=== PATIENT | female | born 1930 | race Caucasian/White ===

== ENCOUNTER 2016-10-15 10:41 | Inpatient (IN) | payer MEDICARE, OTHER ==
[~2016-10-15] VITALS: Ht 152.4 cm; Wt 70.8 kg
[2016-10-15] VITALS (9 sets, daily range): BP systolic 150–180; BP diastolic 69–78; PULSE 66–78; RESP 15–17; O2SAT 94–97
[~2016-10-15 10:41] MED LIST: ALEN70SO3 PO; ASCO-294 PO; CA C1TAB87 PO; CALC100T2 PO; CETI10CA PO; CHOL100045 PO; DESO15CR10 TOP; DESO15CR25 TOP; FLUO118.2 TP; FLUO60SO3 TOPICAL; FOLI1TAB5 PO; KETACONAZOLE SHAMPOO TP; LEVO75TA4 PO; OMEP20CA11 PO; SIMV80TA4 PO; [UNRECOGNIZED DRUG - OTHER] PO
--- NOTE | 2016-10-15 10:52 | ED.REPORT ---
HPI-General Illness Date of Service Oct 15, 2016 ED Provider: Dr. Ryan Pt is an 86 y/o female presenting to the ED via EMS due to near-syncope onset prior to arrival. The pt was using an exercise cycle and heard her phone ring. She got up to answer the phone and felt very lightheaded. She went down to her knees to . She stood up to call her son-in-law and then rested lying down on the couch. Her lightheadedness persisted although she was lying down. She experienced a similar episode 2 days ago but with far less severity. She notes unusual dyspnea on exertion while she was using her treadmill a few days ago. She denies CP, SOB, focal numbness or weakness, vision change, speech change, dysuria, nausea, vomiting, diarrhea, cough, fever. She is feeling OK at time of interview. Nursing Notes Stated Complaint: DIZZY Nursing Notes Reviewed: Yes Allergies: Coded Allergies: erythromycin ethylsuccinate (Verified Allergy, Severe, HIVES, 10/15/16) naproxen (Verified Adverse Reaction, Severe, GI PROBLEMS, 10/15/16) Scheduled Alendronate Sodium (Fosamax) 70 Mg Tablet 70 MG PO WEEKLY Tuesdays Ascorbate Calcium (Vitamin C) 500 Mg Tablet 500 MG PO DAILY Ca Carbonate/Vitamin D3/Vit K (Citracal Soft Chew) 1 Each Tab.chew 1 EACH PO DAILY Cetirizine HCl (Zyrtec) 10 Mg Capsule 10 MG PO DAILY Cholecalciferol (Vitamin D3) (Vitamin D) 1,000 Unit Capsule 2,000 UNIT PO DAILY Doxepin (Doxepin) 10 Mg Capsule 10 MG PO HS Fluocinonide 0.05% Solution (Fluocinonide 0.05% Solution) 60 Ml Solution 1 APPLIC TOPICAL every other day shampoo for scalp Folic Acid/Mv,Fe,Other Min (Centrum Chewable Tablet) 1 Each Tab.chew 1 EACH PO DAILY Gluc 2Kcl/Chondr/Zi Hy/Hy AC (Glucosamine & Chondroitin Cap) 1 Each Capsule 1 EACH PO BID Levothyroxine (Levothyroxine) 75 Mcg Tablet 112 MCG PO DAILY 112mcg on Mondays and Fridays Levothyroxine (Levothyroxine) 75 Mcg Tablet 75 MCG PO DAILY 75mcg on Sundays, Tuesdays, Wednesdays, , Saturdays Melatonin (Melatonin) 5 Mg Tablet 5 MG PO HS Simvastatin (Simvastatin) 80 Mg Tablet 80 MG PO HS Vit B Comp/C/FA/Iron/Vit E (Vitamin B Complex Tablet) 1 Each Tablet 1 EACH PO DAILY Scheduled PRN ([Ketaconazole Shampoo]) 1 APPLIC TP 2-3X/WEEK PRN PRN PRN 2% General Time Seen by MD: 10:58 Chief Complaint Other (Near-syncope) Hx Obtained From: Patient, EMS Arrived By: Ambulance Sudden in Onset?: Yes Onset Occurred: Just prior to arrival Symptom Duration: Intermittent Severity: Current: No pain currently Severity: Maximum: No pain Past Medical History Past Medical History Hypothyroid Hypertension Hyperlipidemia Hx Diverticulitis GERD Depression Anxiety Hx skin CA Past Surgical History Appendectomy Hysterectomy Vaginal suspension T&A Ovarian cystectomy MOH's x2 Smoking History Never Smoker Social History Alcohol Use: Denies alcohol use Drug Use: Denies drug use Ambulatory Status Independent Review of Systems Full Review of Systems Constitutional: Denies: Chills, Fever Respiratory: Reports: Dyspnea on exertion, Denies: Non-productive cough, Shortness of breath Cardiovascular: Denies: Chest pain GI: Denies: Abdominal pain, Diarrhea, Nausea, Vomiting Female: Denies: Dysuria Neurologic: Reports: Lightheaded, Denies: Bladder dysfunction, Bowel dysfunction, Change LOC, Confusion, Focal weakness, Headache, Numbness, Seizure, Shaking, Slurred speech, Spinning sensation, Unable to speak, Vision change Complete sys rev & neg: except as marked. Physical Exam Vital Signs Vital Signs Date Time Temp Pulse Resp B/P Pulse Ox O2 Delivery O2 Flow Rate FiO2 10/15/16 13:45 72 151/69 96 Room Air 10/15/16 13:34 72 150/69 96 Room Air 10/15/16 11:43 78 15 153/71 95 Room Air 10/15/16 11:10 36.6 76 17 162/75 97 Room Air Initial VS: Reviewed Head / Eyes: Atraumatic, Normocephalic, PERRL ENT: Mucous membranes moist, Conjunctiva normal, No scleral icterus Neck: Supple, Full range of motion Respiratory: Breath sounds normal, Clear to auscultation, No respiratory distress Abdomen / GI: Soft, Non-tender, No guarding, No rebound, No distention Extremities: Vascular intact, Neuro intact, No swelling, No tenderness Skin: Warm, Dry, No cyanosis Neurologic: Nonfocal Psychiatric: Mood/affect normal, Behavior normal, Normal thought content General/Constitutional: Awake, Alert, No acute distress, Well appearing, Cooperative, Not toxic appearing Cardiovascular: Heart rate NL, Regular rhythm, Cap refill not delayed, Peripheral circulation NL Heart Sounds / Murmur: Positive: Systolic murmur present.. (II/, right upper sternal border) Neurologic: Oriented X3, Speech NL, No motor deficits, No sensory deficits, CN II - XII intact, Memory NL Interpretation & Diagnostics Lab Results Interpretation Result Diagram: 10/15/16 1113 10/15/16 1113 Test 10/15/16 11:13 10/15/16 11:31 White Blood Count 7.2th/mm3 (3.8-10.1) Red Blood Count 4.91mil/mm3 (3.90-5.20) Hemoglobin 12.9g/dL (12.0-15.6) Hematocrit 40.2% (35.0-46.0) Mean Corpuscular Volume 81.9fL (81-100) Mean Corpuscular Hemoglobin 26.3pg (27.0-35.0) Mean Corpuscular Hemoglobin Concent 32.1% (32.0-37.0) Red Cell Distribution Width 14.2% (12.3-15.4) Platelet Count 237bil/L (150-400) Neutrophils (%) (Auto) 64.7% (40-74) Lymphocytes (%) (Auto) 23.4% (14-46) Monocytes (%) (Auto) 8.7% (4-12) Eosinophils (%) (Auto) 2.5% (0-5) Basophils (%) (Auto) 0.4% (0-3) D-Dimer 3.8mg/L (<0.50) Sodium Level 139mEq/L (134-144) Potassium Level 4.3mEq/L (3.5-5.2) Chloride Level 100mEq/L (97-108) Carbon Dioxide Level 26mmol/L (18-29) Blood Urea Nitrogen 15mg/dL (8-27) Creatinine 0.61mg/dL (0.57-1.00) Estimat Glomerular Filtration Rate 133mL/min (>59) Glucose Level 94mg/dL (60-99) Calcium Level 9.3mg/dL (8.5-10.1) Magnesium Level 2.0mg/dL (1.6-2.6) Total Bilirubin 0.3mg/dL (0.0-1.2) Aspartate Amino Transf (AST/SGOT) 21U/L (0-50) Alanine Aminotransferase (ALT/SGPT) 11U/L (0-32) Alkaline Phosphatase 79U/L (25-165) Total Creatine Kinase 83U/L (21-215) Creatine Kinase MB 2.6ng/mL (0.0-5.3) Creatine Kinase MB % % (0.0-5.0) Troponin T < 0.010ug/L (0.0-0.011) Pro-B-Type Natriuretic Peptide 499.3pg/mL (0-738) Total Protein 7.3g/dL (6.4-8.4) Albumin 3.7g/dL (3.4-5.0) Hold Urine Received (Received) ECG Interpretation ECG Interpretation: Sinus rhythm rate 71 RBBB Time: 11:31 Interpreted by: ED physician Normal ECG Interpretation: No acute ischemic changes X-Ray Chest Interpretation Chest Xray Interpretation: IMPRESSION: No acute cardiopulmonary abnormality Dictated by: Red Krause M.D. on 10/15/2016 at 12:04 Approved by: Red Krause M.D. on 10/15/2016 at 12:04 View: Portable, 1 view Interpretation / Wet Read by: Interpret - Radiologist CT Chest Interpretation IMPRESSION: 1. No acute pulmonary embolus. 2. Mild aortic atherosclerosis. Dictated by: Idalmis Beatty M.D. on 10/15/2016 at 13:22 Approved by: Idalmis Beatty M.D. on 10/15/2016 at 13:22 Study type: CT pulm angiogram Interpretation / Wet Read by: Interpret - Radiologist Re-Eval/Medical Decision Med Decision/Clinical Course Multiple episodes of near syncope associated with post exertion, additionally patient has a murmur of aortic stenosis. Patient will be admitted for further evaluation. Time of Eval: 13:48 Re-Evaluation/Progress Note: Pt rechecked. Informed pt of need for admission for further cardiac workup. Pt understands and agrees with plan for admission. All questions addressed. Consultation : Referral / Consult Name: Bret Laura MD Consulted With: Hospitalist Call Returned at: 13:53 Assistant Press Operator Offset: Will see patient, Agrees with eval, Agrees with plan, Accepts admit Note: Case discussed. Counseled Regarding: Diagnosis, Lab results, Need for admission Discharge & Departure Primary Impression: Near syncope Additional Impression: Newly recognized heart murmur Disposition: ADMITTED TO HOSPITAL Discharge Condition All VS Reviewed: Yes Condition: Stable Referrals: Tova Lozada MD (PCP) Scribe Attestation Portions of this note were transcribed by Lc Jaimes. I, Dr. Ryan personally performed the history, physical exam and medical decision-making; I reviewed and confirmed the accuracy of the information in the transcribed note. Signed by Jabari Graham, 10/15/16 - [id number] copies to: Tova Lozada MD, Timothy S DO Oct 15, 2016 10:52 LC JAIMES Oct 15, 2016 11:05
[2016-10-15 11:19] LABS: BASOPHILS % (AUTO) 0.4 % (0-3); EOSINOPHILS % (AUTO) 2.5 % (0-5); MONOCYTES % (AUTO) 8.7 % (4-12); Mean Corpuscular Hemoglobin 26.3 pg (27.0-35.0); Mean Corpuscular Volume 81.9 fL (81-100); NEUTROPHILS % (AUTO) 64.7 % (40-74); Platelet Count 237 bil/L (150-400)
[2016-10-15 11:55] LABS: Creatine Kinase 83 U/L (21-215)
[2016-10-15 11:58] LABS: TROPONIN T < 0.010 ug/L (0.0-0.011)
--- NOTE | 2016-10-15 12:06 | DRSVH ---
PROCEDURE: X-RAY CHEST ONE VIEW, PORTABLE ([id number]) INDICATIONS: near syncope TECHNIQUE: One view of the chest was acquired. COMPARISON: 12/18/2013 FINDINGS: Surgical changes and devices: None. Lungs and pleura: No pleural effusions or pneumothorax. Lungs are clear. Mediastinum: Mediastinal contours appear normal. Heart size is normal. Calcifications in the mitral annulus. Bones and chest wall: No suspicious bony lesions. Overlying soft tissues appear unremarkable. IMPRESSION: No acute cardiopulmonary abnormality Dictated by: Red Krause M.D. on 10/15/2016 at 12:04 Approved by: Red Krause M.D. on 10/15/2016 at 12:04
--- NOTE | 2016-10-15 13:24 | DRSVH ---
PROCEDURE: CT ANGIO CHEST PULMONARY EMBOLISM ([id number]) INDICATIONS: near syncope elevated DDIMer TECHNIQUE: After the administration of intravenous contrast, 2 mm thick sections acquired from the pulmonary api mary to the posterior costophrenic angles. 3-dimensional maximum intensity projection (MIP) coronal a nd sagittal reformats were then acquired through the thorax. For radiation dose reduction, the follo wing was used: automated exposure control, adjustment of mA and/or kV according to patient size. COMPARISON: None. FINDINGS: Image quality: Excellent. Pulmonary arteries: Pulmonary arteries are normal in size, and demonstrate no intraluminal filling d efects to suggest central pulmonary embolism. Lungs and pleura: Lungs are clear. No pleural effusions or pneumothorax. Central and peripheral ai rways are patent. Mediastinum: Heart size is normal, without pericardial effusion. No mediastinal or hilar adenopathy . Thoracic aorta is normal in caliber and enhancement. Scattered atheromatous calcifications are pre sent within the aortic arch. Esophagus is normal in caliber, without hiatal hernia. Bones and chest wall: No suspicious bony lesions. Ribs and thoracic spine appear intact throughout. Thyroid gland is unremarkable. No axillary or supraclavicular adenopathy. Abdomen: Visualized upper abdominal solid organs appear normal in the early arterial phase of enhanc ement. IMPRESSION: 1. No acute pulmonary embolus. 2. Mild aortic atherosclerosis. Dictated by: Idalmis Beatty M.D. on 10/15/2016 at 13:22 Approved by: Idalmis Beatty M.D. on 10/15/2016 at 13:22
[2016-10-15] MEDS ORDERED: ALEN70TA2 PO (14:18)
[2016-10-15] MEDS ORDERED: GLUC-120 PO (14:18)
[2016-10-15] MEDS ORDERED: VIT1TABL83 PO (14:18)
[2016-10-15] MEDS ORDERED: MELA5TAB14 PO (14:18)
[2016-10-15] MEDS ORDERED: LEVO75TA4 PO (14:18)
[2016-10-15] MEDS ORDERED: DOXE10CA PO (14:18)
[2016-10-15] MEDS ORDERED: Ondansetron 2 mg/mL 2 mL Inj IVPUSH PRN (14:25)
[2016-10-15] MEDS ORDERED: Alum-Mag Hydrox-Simeth 30 mL Suspension PO PRN (14:25)
[2016-10-15] MEDS ORDERED: Polyethylene Glycol (PEG) 17 Gm Powder PO PRN (14:30)
[2016-10-15] MEDS ORDERED: HYDROcodone-APAP 5-325 mg Tablet PO PRN (14:30)
--- NOTE | 2016-10-15 14:32 | PCM.HPMED ---
Subjective Date of Service Oct 15, 2016 Primary Provider: Admitting Physician: Primary Care Physician: Tova Lozada MD Attending Physician: Chief Complaint: Near syncope History of Present Illness: 86-year-old female generally healthy not on beta blockers having near syncopal episodes after exerting herself. A murmur was heard in the emergency room and an echocardiogram was obtained to rule out aortic stenosis. Patient has moderate aortic stenosis. While here on the floor she got up from the commode and transferred and had a 3.1 second pause and head which she described as mild near syncopal symptoms. She denies any chest pain, no actual falling and has been otherwise well prior to this and these events have never occurred until the last couple days. The pt was using an exercise cycle and heard her phone ring. She got up to answer the phone and felt very lightheaded. She went down to her knees to . She stood up to call her son-in-law and then rested lying down on the couch. Her lightheadedness persisted although she was lying down. She experienced a similar episode 2 days ago but with far less severity. She notes unusual dyspnea on exertion while she was using her treadmill a few days ago. She denies CP, SOB, focal numbness or weakness, vision change, speech change, dysuria, nausea, vomiting, diarrhea, cough, fever. She is feeling OK at time of interview. Review of Systems: Patient states she has been otherwise well other than these episodes with feeling woozy and near loss of consciousness which passed quickly. Gen.: No fevers chills weight loss weight gain Eyes: no visual disturbances or blurring vision HEENT: No nose/throat drainage, no pain in ears or throat, no hearing loss Lymph: No lymph nodes noted Cardiac: No chest pain, orthopnea, PND, palpitations , pedal edema or dyspnea on exertion Pulmonary: no cough, wheezing or bringing up of sputum GI: No anorexia nausea vomiting blood or black in the stool : no dysuria hematuria urinary frequency or decrease in urine output Musculoskeletal: Joint swelling no joint pain no new muscle aches or back pain Neuro: No syncope, seizures no loss of consciousness no new focal weakness, numbness or tingling+ near syncope as described above Psychiatric: New new anxiety insomnia or depression Endocrine: No new heat or cold intolerances polyuria or polydipsia Hematology: No lymphadenopathy or easy bleeding or bruising noted skin: No new rashes, stasis dermatitis Allergies Coded Allergies: erythromycin ethylsuccinate (Verified Allergy, Severe, HIVES, 10/15/16) naproxen (Verified Adverse Reaction, Severe, GI PROBLEMS, 10/15/16) Home Medications Scheduled Alendronate Sodium (Fosamax) 70 Mg Tablet 70 MG PO WEEKLY Tuesdays Ascorbate Calcium (Vitamin C) 500 Mg Tablet 500 MG PO DAILY Ca Carbonate/Vitamin D3/Vit K (Citracal Soft Chew) 1 Each Tab.chew 1 EACH PO DAILY Cetirizine HCl (Zyrtec) 10 Mg Capsule 10 MG PO DAILY Cholecalciferol (Vitamin D3) (Vitamin D) 1,000 Unit Capsule 2,000 UNIT PO DAILY Doxepin (Doxepin) 10 Mg Capsule 10 MG PO HS Fluocinonide 0.05% Solution (Fluocinonide 0.05% Solution) 60 Ml Solution 1 APPLIC TOPICAL every other day shampoo for scalp Folic Acid/Mv,Fe,Other Min (Centrum Chewable Tablet) 1 Each Tab.chew 1 EACH PO DAILY Gluc 2Kcl/Chondr/Zi Hy/Hy AC (Glucosamine & Chondroitin Cap) 1 Each Capsule 1 EACH PO BID Levothyroxine (Levothyroxine) 75 Mcg Tablet 112 MCG PO DAILY 112mcg on Mondays and Fridays Levothyroxine (Levothyroxine) 75 Mcg Tablet 75 MCG PO DAILY 75mcg on Sundays, Tuesdays, Wednesdays, , Saturdays Melatonin (Melatonin) 5 Mg Tablet 5 MG PO HS Simvastatin (Simvastatin) 80 Mg Tablet 80 MG PO HS Vit B Comp/C/FA/Iron/Vit E (Vitamin B Complex Tablet) 1 Each Tablet 1 EACH PO DAILY Scheduled PRN ([Ketaconazole Shampoo]) 1 APPLIC TP 2-3X/WEEK PRN PRN PRN PMH Hypothyroid Hypertension Hyperlipidemia Hx Diverticulitis GERD Depression Anxiety Hx skin CA Past Surgical History Appendectomy Hysterectomy Vaginal suspension T&A Ovarian cystectomy MOH's x2 Smoking History Never Smoker Social History Alcohol Use: Denies alcohol use Drug Use: Denies drug use Ambulatory Status Independent Family History Family history diabetes twins sister and nephews, heart disease and mother osteoporosis and twin sister and older sister and colon cancer in father Social History Hx Alcohol Use: No Hx Substance Use: No Smoking Status: Never Smoker Exam Vital Signs Vital Sign - Last Date Time Temp Pulse Resp B/P Pulse Ox O2 Delivery O2 Flow Rate FiO2 10/15/16 13:45 72 151/69 96 Room Air 10/15/16 11:43 15 10/15/16 11:10 36.6 Exam Gen.- A+ O 3 no apparent distress. Sturdy elderly female in bed but able to get up easily and do transfers Eyes- open conjunctiva clear, pupils equal nonicteric Mouth- oral mucosa moist, no exudate ENT- ears normal, nose normal Neck- supple/trach midline CVS- RRR no gallop, perhaps a 1 out of 6 or 2/6 murmur I could barely hear loudest at the second sternal notch on the right side of the sternal Lungs CTA GI- NABS/NT soft Musc- moving 4 no obvious deformity Neuro- cranial nerves II through XII intact to gross examination, nonfocal Skin- warm and dry, no rashes/lesions/wounds noted Psych- pleasant and appropriate, Lab and Diagnostics Labs LFTs WNL, troponin 0.010, pro BNP 499.3, d-dimer 3.8 Result Diagram: 10/15/16 1113 10/15/16 1113 X-Rays, CTs and MRIs CT angiogram currently reviewed by myself no PE mild atherosclerosis CXR no active disease 12-lead ECG EKG sinus at 71 QTC 492 ms right bundle branch and left anterior fascicular block and no acute ST segment changes personally reviewed Cardiac Echo Impressions ECHO The left ventricle is normal in size. The left ventricle is hyperdynamic. The ejection fraction is estimated to be 75-80%. The right ventricle is normal in size and function. The aortic valve is moderately calcified. The peak aortic velocity is 3.2 m/sec. The aortic valve mean gradient is 21 mmHg. The calculated aortic valve area is 1.4 cm2. There is moderate aortic stenosis. There is mild to moderate aortic regurgitation. There is mild tricuspid regurgitation. The right ventricular systolic pressure is estimated at 40 mmHg assuming a right atrial pressure of 3 mm Hg. Assessment & Plan 86-year-old female with near syncope following exertion. Found to have sinus arrhythmia with symptoms here, cardiology called we will probably need to call them again in the morning. Expectation symptomatic bradycardia pacemaker. Near syncope-explained by 3.1 second pause patient had mild symptoms when she was on the monitor getting off the commode here. Sinus arrhythmia-as above. Patient not on a beta or calcium channel blockers cardiology, no rate slowing medications. Dr. Mclain was called, we will keep the patient nothing by mouth after midnight in preparation for potential pacemaker with Dr. Ch in the morning. Moderate aortic stenosis-no action at this time Prophylaxis-DVT SCDs, perhaps Lovenox post pacemaker insertion., GI not indicated Disposition-patient is DO NOT RESUSCITATE from home Bret Laura MD Oct 15, 2016 14:32
--- NOTE | 2016-10-15 16:21 | DRSVH ---
[facility] [address] [place] [address] Echocardiogram Report Name: FERNANDO JARVIS Study Date: 10/15/2016 Height: 6 0 in Hospital Exam Location: [facility] Weight: 1 55 lb Gender: Female BSA: 1.7 m2 : 1930 Age: 86 yrs BP: 151/6 9 mmHg Reason For Study: SYNCOPE, EVAL Ordering Physician: HOSPITALIST [facility] Performed By: Heather Bain Referring Physician: DR. ALEYDA PALMER Interpretation Summary The left ventricle is normal in size. The left ventricle is hyperdynamic. The ejection fraction is estimated to be 75-80%. The right ventricle is normal in size and function. The aortic valve is moderately calcified. The peak aortic velocity is 3.2 m/sec. The aortic valve mean gradient is 21 mmHg. The calculated aortic valve area is 1.4 cm2. There is moderate aortic stenosis. There is mild to moderate aortic regurgitation. There is mild tricuspid regurgitation. The right ventricular systolic pressure is estimated at 40 mmHg assuming a right atrial pressure of 3 mm Hg. Procedure: A two-dimensional transthoracic echocardiogram with color flow and Doppler was performed. The study quality was technically good. There is no prior echocardiogram noted for this patient. The patient was in normal sinus rhythm during the exam. The patient did have occasional long pauses. Left Ventricle: The left ventricle is normal in size. The LVOT diameter is 2.1 cm. The LVOT velocity is 1.2 m/s. Left ventricular wall thickness is mildly increased. There is no thrombus. The ejection fraction is estimated to be 75-80%. The left ventricle is hyperdynamic. There are no focal wall motion abnormalities. Spectral Doppler of the mitral valve is reversed, with an E/A wave ratio < 1.0. Right Ventricle: The right ventricle is normal in size and function. Atria: The left atrium is moderately dilated. The right atrium is mildly dilated. There is no Doppler evidence for an atrial septal defect. Mitral Valve: There is moderate to severe mitral annular calcification. The mitral valve leaflets appear mildly thickened, but open well. No significant mitral valve stenosis. There is mild mitral stenosis. There is mild mitral regurgitation. Aortic Valve: The aortic valve is trileaflet. The aortic valve is moderately calcified. Leaflet mobility is mild to moderately reduced. The calculated aortic valve area is 1.4 cm2. The peak aortic velocity is 3.2 m/sec. The aortic valve mean gradient is 21 mmHg. There is moderate aortic stenosis. There is mild to moderate aortic regurgitation. Tricuspid Valve: Tricuspid leaflets are thickened. There is mild tricuspid regurgitation. The right ventricular systolic pressure is estimated at 40 mmHg assuming a right atrial pressure of 3 mm Hg. Pulmonic Valve: The pulmonic valve is not well visualized. There is trace pulmonic regurgitation. Great Vessels: The aortic root is normal size. There is aortic root sclerosis/calcification. The ascending aorta is mildly enlarged. The pulmonary artery is not well visualized, but is probably normal size. The IVC is of normal diameter and collapses greater than 50% with a sniff. This suggests a low right atrial pressure of 3 mm Hg. Pericardium/ Pleura There is no pericardial effusion. There is no pleural effusion. MMode/2D Measurements & Calculations LVIDd: 4.4 cm LA dimension: 4.1 cm RA long axis LVOT diam: 2.1 cm LVIDs: 2.2 cm AoV Openin.2 cm FS: 49.8 % LA A2 area: 24.8 cm RA area Ao root diam: 2.9 cm IVSd: 1.1 cm LA A4 area: 24.1 cm asc Aorta Diam LVPWd: 1.0 cm LA length (vol) : 18.7 cm RA vol Ao Arch Diam LA vol: 80.1 ml : 57.5 ml (Proximal trans.) LA vol index RA : 34.3 mm/ RVDd major IVC diam: 1.2 cm RVDd minor : 3.7 cm LV jimenez. diameter/BSALV sys. diameter/BSA (cm/m^2): 2.6 (cm/m^2): 1.3 Doppler Measurements & Calculations Ao V2 max MV E max rsahid MV E/A: 0.58 TR max rashid : 322.0 cm/sec : 128.0 cm/sec Med Peak E' Rashid : 302.5 cm/sec Ao max PG MV A max rashid TR max PG : 41.5 mmHg : 219.1 cm/sec E/E' med: 27.6 : 36.6 mmHg Ao mean PG MV P1/2t: 47.3 msec Lat Peak E' Rashid PA V2 max : 20.9 mmHg MVA(VTI): 2.4 cm2 : 92.4 cm/sec LVOT Max Rashid E/E' lat: 18.8 PA mean PG : 124.5 cm/sec Pulm A Revs Dur : 2.5 mmHg JEWEL(I,D): 1.4 cm sev ratio MV A dur: 0.16 sec AI P1/2t : 400.7 msec AI dec slope : 330.8 cm/s2c MV V2 mean MV P1/2t max rashid Ao V2 mean LV V1 max PG : 127.9 cm/sec : 216.5 cm/sec MV mean PG MVA(P1/2t): 4.7 cm2 Ao V2 VTI: 78.0 cm LV V1 VTI JEWEL(V,D): 1.3 cm2 : 32.9 cm MV V2 VTI: 45.4 cm MV dec time : 0.16 sec PA V2 mean JEWEL indexed to BSA Pulm A Revs Dur - MV : 77.9 cm/sec (cm^2/m^2): 0.84 A Dur: -0.03 msec Reading Physician:EAGLE
--- NOTE | 2016-10-15 16:40 | NUR ---
ADMIT Patient received from the ED via a gurney. Transferred with assist to the bed. IV saline locked. Denies nausea/pain/SOB/lightheadedness at this time. Oriented to room, call light and bathroom. Patient is placed on remote tele. Admit done by Bernie Wright RN. Daughter is at the bedside. Jluis alarm will be turned on once the daughter leaves.
[2016-10-15] MEDS: Sodium Chloride LOK Flush 10 mL Syringe IVFLUSH SCH ×2 (16:57→23:16)
--- NOTE | 2016-10-15 18:12 | NUR ---
TELE/MD NOTIFICATION Per telesales manager patient had a 3.41 sec pause with HR-60's. SBP-150's. Patient was just getting back to bed from the BSC. She denied pain/nausea/dizziness. Per tele protocol STAT EKG ordered. Dr. Laura was made aware. MD came to assess the patient and cardiology consult will be ordered. Will continue to monitor.
--- NOTE | 2016-10-15 18:58 | NUR ---
MD NOTIFICATION Patient had a 3.35 sec pause. SBP-160's. She denies chest pain/SOB/lightheadedness. Dr. Laura made aware. No new orders received at this time. Per MD continue to monitor and cardiology to consult in the morning.
[2016-10-16] VITALS (9 sets, daily range): BP systolic 142–192; BP diastolic 62–73; PULSE 65–80; RESP 15–24; O2SAT 95–97
--- NOTE | 2016-10-16 06:41 | NUR ---
Tele Has remained SR this shift with only one noted pause per elevator service technician. Kept on bed rest all shift for patient safety. NPO since midnight for possible pacemaker pending cardiology consult. Currently resting in bed without any complaints.
[2016-10-16] MEDS: Sodium Chloride LOK Flush 10 mL Syringe IVFLUSH SCH ×3 (08:30→22:01)
--- NOTE | 2016-10-16 12:39 | PCM.HPCARD ---
Subjective Date of service Oct 16, 2016 Primary Provider: Admitting Physician: Bret Laura MD Primary Care Physician: Tova Lozada MD Attending Physician: Bert Laura MD Chief Complaint: Chief Complaint: Near syncope, recurrent lightheadedness, unusual exertional dyspnea History of Present Illness: Mrs. Kennedy is an 86-year-old female generally healthy woman who began having near syncopal episodes about 2 days prior to admission and they seemed to her related to exertion. She was using an exercise cycle and heard her phone ring. She got up to answer the phone and felt very lightheaded and went down to her knees. 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 An echocardiogram was obtained and it shows hyperdynamic LV function and moderate aortic stenosis. While on cardiac cafeteria monitor, she has had at least five occasions of intermittent complete AV Block with 2 or 3 consecutive blocked P waves and she described mild near syncopal symptoms. She denies any chest pain, no actual falling and has been otherwise well prior to this and these events have never occurred until the last couple days. Mrs. Kennedy exercises regularly but has noticed unusual dyspnea on exertion while she was using her stationary bike a few days ago. She denies CP, SOB, weakness, vision change, speech change, nausea, vomiting, diarrhea, cough, or fever. She has not been on any AV mary carmen blocking agents. Review of Systems General: Reports: Change in exercise capacity Endurance Energy Fatigue Denies: Night sweats No Chills No Fever Poor Appitite Eyes: Reports: Reduced vision Denies: Double or blurred vision Problem/recent change in vision Respiratory: Reports: Dry cough Dyspnea with exertion Denies: Cough or wheezing Orthopnea Orthopnea or PND PND Significant dyspnea Wheezing Cardiovascular: Reports: Lightheadedness or syncope Presyncope Syncopal episodes Denies: Abdominal distention Chest Discomfort Claudication Lower extremity edema Palpitations Gastrointestinal: Denies: Abdominal discomfort Dyspepsia Nausea Recent melena or hematochezia Significant diarrhea/constipation Ulcers or GI blood loss Genitourinary: Denies: Hematuria Urinary symptoms Musculoskeletal: Reports: Arthritis Joint pain Joint stiffness Significant joint or back problems Denies: Significant myalgias Neurological: Reports: Dizziness Unsteadiness Denies: Any history of stroke/TIA symptoms Any recent focal neuro deficits Hx unusual FREEDMAN/confusion/memory loss Paralysis Weakness Psychiatric: Reports: Change in cognitve functions Denies: Anxiety Depression Endocrine: Denies: Intolerance to heat Polydipsia Statin intolerance Integumentary: Denies: Increased dryness of the skin Itching Rash Hematologic/Immunologic: Reports: Easy bruising PMH Past Medical History Hypothyroid Hypertension Hyperlipidemia Hx Diverticulitis GERD Depression Anxiety Hx skin CA Past Surgical History Appendectomy Hysterectomy Vaginal suspension T&A Ovarian cystectomy MOH's x2 Smoking History Never Smoker Allergies: Coded Allergies: erythromycin ethylsuccinate (Verified Allergy, Severe, HIVES, 10/15/16) naproxen (Verified Adverse Reaction, Severe, GI PROBLEMS, 10/15/16) Social History Hx Alcohol Use: NoHx Substance Use: No Smoking Status: Never Smoker Exam Vital Signs Vital Sign - Last Date Time Temp Pulse Resp B/P Pulse Ox O2 Delivery O2 Flow Rate FiO2 10/16/16 09:52 65 10/16/16 04:35 36.5 16 146/63 97 Room Air Intake and Output 10/15/16 10/15/16 10/16/16 Cumulative From/Thru 15:00 23:00 07:00 10/15/16 11:10 - 10/16/16 06:44 Intake Total 740 ml 550 ml 1290 ml Output Total 100 ml 1363 ml 1463 ml Balance 640 ml -813 ml -173 ml Intake Oral 240 ml 550 ml 790 ml IV Total 500 ml 0 ml 500 ml Output Urine Total 100 ml 1363 ml 1463 ml # Bowel Movements 0 0 0 General: Pleasant Cooperative Healthy appearing Skin: Warm & dry to touch No rashes Head: Normocephalic Normal female hair pattern Eye: EOMS intact No arcus or xanthelasma PERRLA Neck: No JVD Carotid pulses full/equal bilateral No bruits No thyromegaly Ears, Nose & Throat: Hearing loss Chest: Clear auscultation w/o rales/wheeze Cough Normal breath sounds Normal A-P diameter Cardiac: Regular rhythm with normal S1-S2 No S3 or S4 Systolic ejection murmur Pulses: Pulses full/equal all extremities Both femoral pulses 2+ Abdomen: Soft, non-distended, non-tender Normal bowel sounds w/o bruits Extremities: Warm w/o clubbing,cyanosis,edema Neurological: Alert & oriented No gross motor or sensory deficits Oriented to time, person & place Psychological: Affect & interaction appropriate Memory grossly intact Oriented to time, place and person Normal memory Lab and Diagnostics Result Diagram: 10/15/16 1113 10/15/16 1113 Assessment & Plan Assessment Mrs. Kennedy began having near syncopal episodes about 2 days prior to admission and she has show intermittent complete AV block on telemetry monitoring here. Her ECG shows RBBB and LAFB and her echocardiogram shows hyperdynamic LV function and moderate aortic stenosis. Blocked P waves are associated with mild near syncopal symptoms. She has not been on any AV mary carmen blocking agents and with the symptoms and Bifascicular block, her situation will require a permanent pacemaker to prevent pauses, syncope and significant injury. This will be arranged with Dr. Matt Kerns in the next few days. Should her pauses prolong to where she has syncope while supine, she will need a temporary pacing lead inserted until the permanent pacemaker is implanted. VTE Mechanical Devices: Intermittant Pneumatic CD Time spent 60 minutes critical time Attending Statement Unfortunately, Mrs. Kennedy started to develop syncopal episodes around 130 pm. She was having 11 seconds of complete AV block. Her family was at bedside and I discussed the need to proceed with urgent temporary pacer and they all agreed. I have discussed the case with Dr. Kerns and will proceed with PPM on Tuesday around 8 am. Patient and patient's family were informed about potential complications with placing a temporary pacer which are but not limited to, pneumothorax, carotid artery dissection, acute bleeding, vocal cord paralysis, RV free wall puncture, and pericardial effusion. Copies to: Tova Lozada MD, John F PA-C Oct 16, 2016 10:07 Andrez Ch MD Oct 16, 2016 14:48
--- NOTE | 2016-10-16 13:28 | NUR ---
Telemetry Update: Ventricular Standstill Patient has been Sinus Rhythm 60-70s with an IVCD and occasional PVCs. Patient had several 2-3s pauses over night with 2:1 and 3:1 blocks. Patient had another 3:1 3s pause at 11:48 and then a 11s episode of Ventricular Standstill at 13:24. NOÉ valentin. Addendum: 10/16/16 at 1405 by SAROJ MATIAS Noted that patient had several minutes of bigeminal PVCs following episode of Ventricular Standstill at 13:24. Patient had another 12 second episode of Ventricular Standstill at 13:47. NOÉ valentin
[2016-10-16] MEDS ORDERED: Heparin 5,000 Units/500 mL NS Premix IV ONE (14:24)
[2016-10-16] MEDS ORDERED: 0.9% Sodium Chloride 500 ML ONE (14:25)
--- NOTE | 2016-10-16 14:45 | NUR ---
Pauses Pt had a syncopal episode today at 1320 with a correlating pause of 11 seconds on the tele. Approximately 15 minutes after that pause, patient told me she felt like she was passing out, I looked at the patient as her head was falling forward and she became unresponsive, her eyes closed and her arms and legs moved with no purpose, she came too in a panic and thought she was driving a car. Paged Dr. Ch ( cards) and let him know of both occurrences, paged Dr. Hand and let him know as well. Placed external pacers on patient and put the defib at bedside stayed with patient until chemical laboratory assistant was able to take her to chemical laboratory assistant to insert a temporary a temporary pacemaker. Pt will be taken to CCU after temp pacemaker inserted
[2016-10-16] MEDS ORDERED: fentaNYL-PF 50 mCg/mL 2 mL Inj ONE (14:49)
--- NOTE | 2016-10-16 15:59 | PCM.PROC ---
Procedure Note Date of Service: Oct 16, 2016 Pre Procedure Diagnosis: Complete AV block, transient with syncope Post Procedure Diagnosis: Successful pacing with baseline normal sinus rhythm Procedure: Temporary pacemaker Provider and Career Developer: Jr MD Sheng Garcia Indication for Procedure: Syncope secondary to transient complete heart block Procedural Analgesia: Local (Lidocaine 2%) Procedure Details: Patient was brought into the clinical lab clerk after consent was obtained. Patient was prepped and sterilized in the appropriate fashion for IJ insertion of temporary pacemaker. Ultrasound guidance was used to guide insertion of micropuncture needle into the right IJ. Wire was inserted and micropuncture sheath was inserted. The sheath was exchanged over the wire for a 5F sheath and pacer wire was inserted. Balloon was inflated and tip of the pacer wire was inserted into the RV. There was some minor difficulty placing the wire but it seem initially that we were capturing nicely near the base of the tricuspid annulus. Unfortunately, we lost capture and the wire manipulated more distally in the RV apex. Here the patient started to develop slow VT and patient became nauseas. I retracted the wire slightly and seem the have good capturing and sensing. We finally set the device at 5 mA and 2 mV. Fluoroscopy of lungs were taken and there were no immediate signs for pneumothorax. Post Procedure Plan: Patient will need to be kept NPO for Tuesday morning permanent pacemaker placement by Dr. Kerns. copies to: Tova Lozada MD, Oscar J MD Oct 16, 2016 15:59
--- NOTE | 2016-10-16 17:17 | NUR ---
Received patient from Direct Support Professional post temp pacer Patient here from cardiac cath rn after temp pacemaker placed. Temp site is right neck. Right neck dressing CDI. Upon arrival and 1st assessment, it was noted that pacemaker was not capturing. MD aware and came back to adjust. Now Rhythm is SR 70s with 1st degree block and occ paced beats. Patient is a/o w/o pain. Will remain on bedrest per MD orders. RA with sats at 96%. Lungs clear. Patient incontinent of urine, dribbles. Using bedpan until off bedrest. Daughter and granddaughter at bedside. Dinner ordered.
--- NOTE | 2016-10-16 17:41 | NUR ---
Inpatient status effective today, KRISTOPHER signed.
--- NOTE | 2016-10-16 19:37 | PCM.PNMED ---
Subjective Date of Service Oct 16, 2016 Subjective Patient was doing well when I initially visited with her. Throughout the day she had increasing heart block and was eventually taken to the laborer electroplating for temporary pacemaker. She has now been transferred to ICU. She denies any chest pain or heart palpitations. No abdominal pain diarrhea or constipation. Exam Vital Signs Vital Sign - Last Date Time Temp Pulse Resp B/P Pulse Ox O2 Delivery O2 Flow Rate FiO2 10/16/16 17:00 75 10/16/16 16:00 36.7 17 142/65 96 Room Air Intake and Output 10/15/16 10/15/16 10/16/16 Cumulative From/Thru 15:00 23:00 07:00 10/15/16 11:10 - 10/16/16 06:44 Intake Total 740 ml 550 ml 1290 ml Output Total 100 ml 1363 ml 1463 ml Balance 640 ml -813 ml -173 ml Intake Oral 240 ml 550 ml 790 ml IV Total 500 ml 0 ml 500 ml Output Urine Total 100 ml 1363 ml 1463 ml # Bowel Movements 0 0 0 Exam General: Alert, Oriented X3, NAD Head: Normocephalic, atraumatic Eyes: PABLO, EOMI, no scleral Icterus Chest: clear to auscultation B/L, no wheezing rales or rhonchi Heart: Regular rate and rhythm. Normal S1, S2, no murmurs noted Abdomen: soft, non-tender. Bowel sounds are normoactive. No guarding or rebound. Extremities: no cyanosis, clubbing or edema. IVs and Medications Medications Reviewed: Medications were reviewed in detail Lab and Diagnostics Result Diagram: 10/15/16 1113 10/15/16 1113 X-Rays, CTs and MRIs CT angiogram currently reviewed by myself no PE mild atherosclerosis CXR no active disease 12-lead ECG EKG sinus at 71 QTC 492 ms right bundle branch and left anterior fascicular block and no acute ST segment changes personally reviewed Cardiac Echo Impressions ECHO The left ventricle is normal in size. The left ventricle is hyperdynamic. The ejection fraction is estimated to be 75-80%. The right ventricle is normal in size and function. The aortic valve is moderately calcified. The peak aortic velocity is 3.2 m/sec. The aortic valve mean gradient is 21 mmHg. The calculated aortic valve area is 1.4 cm2. There is moderate aortic stenosis. There is mild to moderate aortic regurgitation. There is mild tricuspid regurgitation. The right ventricular systolic pressure is estimated at 40 mmHg assuming a right atrial pressure of 3 mm Hg. Assessment & Plan 86-year-old female with near syncope following exertion. Found to have sinus arrhythmia with paroxysmal complete heart block. She was taken to the [facility] 10/16/2016 for temporary pacemaker placement, then transferred to ICU for continued observation until permanent pacemaker could be placed on Tuesday by Dr. Kerns. Sinus arrhythmia: -Status post temporary pacemaker placement 10/16/2016 -She is not on any calcium channel or beta blockers. -Potassium and magnesium within normal limits. Checking TSH, T4 Near syncope: -Noted to have pauses on telemetry consistent with her symptoms. -CTA was done to rule out pulmonary emboli, found to be negative Aortic stenosis: -Moderate, no action at this time. Hypothyroid: -Continue levothyroxine -Check thyroid function panel CODE STATUS: DO NOT RESUSCITATE/DO NOT INTUBATE DVT prophylaxis: SCDs Disposition: Lives at home independent with ADLs. Discharge pending hospital course. VTE Mechanical Devices: Intermittant Pneumatic CD Hardik Hand DO Oct 16, 2016 19:37
[2016-10-17 00:03] VITALS: BP 157/53; PULSE 65; RESP 16; O2SAT 96
[2016-10-17 03:46] LABS: Mean Corpuscular Hemoglobin 26.4 pg (27.0-35.0); Mean Corpuscular Volume 80.1 fL (81-100)
[2016-10-17 04:00] VITALS: BP 156/51; PULSE 69; RESP 17; O2SAT 94
[2016-10-17 04:07] LABS: Magnesium 2.1 mg/dL (1.6-2.6)
--- NOTE | 2016-10-17 04:20 | NUR ---
temporary pacer right ij temporary pacer in place, rate=60, ma=5, sensitivity=0.5, 32cm, tele- sr, occasional pvc/rare pac, occasional paced beat during the night, hr mostly in 60's-70's, md aware pt rhythm at 2215 where pacer did not capture and pt felt dizzy as if almost ready to pass out, rhythm strip described to md over the phone, no new orders received, no more pacer problems noted t/o the night, pt denies cp, murmur present, pt a/o times three, cooperative, pt using bp during the night with as minimal movement as possible, pt refusing f/c, no bm, pt denies n/v, pt denies sob, ls=clear, ra sats 94-97%, mrsa swab sent to lab, see ccu flow sheet, cont monitoring, plan: permanent pacer Tuesday,
[2016-10-17] MEDS: Sodium Chloride LOK Flush 10 mL Syringe IVFLUSH SCH ×3 (08:07→16:30)
[2016-10-17 08:30] VITALS: BP 144/58; PULSE 69; RESP 17; O2SAT 94
[2016-10-17] MEDS ORDERED: CeFAZolin Inj 2 GM in IV Premix 1 EACH IV SCH (10:35)
--- NOTE | 2016-10-17 11:35 | PCM.PNCARD ---
Subjective Date of service Oct 17, 2016 Chief Complaint Syncope and near syncope yesterday prior to temp pacer insertion. History of Present Illness Mrs. Kennedy was admitted due to episodic lightheadedness and an episode of syncope which proved to be from intermittent complete heart block. She has no prior cardiac history other than hypertension and bifascicular block. Yesterday afternoon she had a couple of prolonged episodes of complete heart block with syncope. She was taken to the laborer [facility] and a temporary pacing lead was inserted via her right IJ vein. There have been some stability issues with the lead and symptomatic noncapture has occurred. This morning Dr Ch adjusted the lead under fluoroscopy. The resulting capture threshold is under 0.5 ma and R wave sensing is at 2 mv. She is currently comfortable, eating breakfast and denies any chest discomfort, nausea, dyspnea or pain. 11-point ROS: 11-point Review of Systems negative Constitutional: Denies: Chills, Malaise, Weakness ENT: Denies: Dysphagia, Throat Pain Eyes: Denies: Vision Changes Cardiovascular: Denies: Chest Pain, Edema, SOB while laying flat Respiratory: Denies: Cough, Wheezing Gastrointestinal: Denies: Abdominal Pain, Constipation, Heartburn Genitourinary: Denies: Dysuria Musculoskeletal: Reports: Shoulder Pain, Denies: Weakness Skin: Denies: Rash Neurological: Reports: Dizziness, Denies: Confusion, Double Vision Endocrine: Denies: Diaphoresis, Excessive Thirst Exam Vital Signs Vital Sign - Last Date Time Temp Pulse Resp B/P Pulse Ox O2 Delivery O2 Flow Rate FiO2 10/17/16 04:00 36.7 69 17 156/51 94 Room Air Intake and Output 10/16/16 10/16/16 10/17/16 Cumulative From/Thru 15:00 23:00 07:00 10/15/16 11:10 - 10/17/16 05:47 Intake Total 360 ml 1650 ml Output Total 300 ml 750 ml 2513 ml Balance -300 ml -390 ml -863 ml Intake Oral 360 ml 1150 ml IV Total 500 ml Output Urine Total 300 ml 750 ml 2513 ml # Bowel Movements 0 0 General: Cooperative Relaxed appearing Skin: Warm & dry to touch Head: No tenderness Eye: EOMS intact PERRLA Ears, Nose & Throat: Mouth no gross abnormalities Hearing loss Perioral cyanosis Neck: No JVD No bruits Chest: Clear auscultation w/o rales/wheeze Cardiac: Regular rhythm with normal S1-S2 Systolic ejection murmur Pulses: Pulses full/equal all extremities Abdomen: Soft, non-distended, non-tender Normal bowel sounds w/o bruits Extremities: Warm w/o clubbing,cyanosis,edema Neurological: Alert & oriented No gross motor or sensory deficits Psychological: Affect & interaction appropriate Memory grossly intact Lab and Diagnostics Result Diagram: 10/17/16 0320 10/17/16 032 Assessment & Plan Assessment Mrs. Kennedy has shown recurrent episodes of complete heart block and syncope. A temporary pacemaker is in place and functional. She'll be kept NPO after MN for pacemaker implant tomorrow at 0800. Cutaneous pacing pads are attached to her and an external pacing device is at the bedside should the endocardial lead fail to operate properly. Problems: (1) Syncope Qualifiers: Syncope type: Gleason-Barry syncope Qualified Code: I45.9 - Conduction disorder, unspecified Status: Acute ICD Code: R55 (2) Complete heart block Status: Acute ICD Code: I44.2 (3) Near syncope Status: Acute ICD Code: R55 Cardiology Plan: Pacemaker Placement (on 10-18-16 at 0800 with an MRI compatible pacemaker.) VTE Prophylaxis: SCDs VTE Mechanical Devices: Intermittant Pneumatic CD Time spent Critical care 30 minutes, including time manipulating transvenous pacer wire. Attending Statement Patient has been reviewed and seen with ZENAIDA Hargrove. I concur with the assessment and plan. Patient will be kept NPO for PPM tomorrow at 8 am. Artur Arriaza PA-C Oct 17, 2016 10:17 Andrez Ch MD Oct 17, 2016 17:50
[2016-10-17 12:30] VITALS: BP 139/59; PULSE 69; RESP 17; O2SAT 94
--- NOTE | 2016-10-17 12:33 | NUR ---
Social Work Initial Assessment D: EMR reviewed. See initial assessment. Pt is an 86Y old female admitted for Near Syncope, Murmur. Insurance is Medicare and [employer] Supplement and Rx Coverage. Pt's insurance information not complete in EMR. SW obtained copies of insurance cards from dtr and faxed to Admitting. PCP is Dr. Lozada. LUCY met with Pt and Pt's dtr and son at bedside, SW role explained. Pt lives alone in [place] Independently. Pt does not use any DME and continues to drive. Pt has no HH/SNF history. Advance Directive Provided by Family, Copy on chart. Pt to have permanent pacer placed on Tuesday. SW anticipates Pt to discharge home via POV when medically stable. Pt's family has arranged for caregivers to stay with Pt at discharge. SW to follow for potential home health at discharge, pending clinical response to pacemaker. SW to follow. A: Pt who is independent at baseline P: Pt to have permanent pacer placed on Tuesday. Anticipate Pt to discharge home with caregivers when medically stable. SW to follow for potential home health pending Pt's response to pacer and initial recovery. SW following. KAREL Swanson Addendum: 10/17/16 at 1243 by OZ BARCENAS Amended: Links added.
--- NOTE | 2016-10-17 15:48 | PCM.PNMED ---
Subjective Date of Service Oct 17, 2016 Subjective Lindsay Kennedy is an 86-year-old female with a history of hypertension, hypothyroidism, depression and anxiety who presented to the ED with a two day history of near syncopal episodes at home. Observed syncope here in the hospital with paroxysmal complete AV block and taken to the clinical lab clerk on 10/16/16 for temporary pacemaker placement. Transferred to the CCU for continued observation until permanent pacemaker could be placed on 10/18/16. Hospital day # 3. Patient is s/p temporary pacemaker placement on 10/16/16 without complications. Per nursing, patient with occasional PVC/rare PAC and heart rate 60-70s. Today, patient is doing well. She is alert and oriented x3, visiting with family and in good spirits. She denies chest pain or palpitations, difficulty breathing and reports one episodes of dizziness overnight but otherwise is without complaint. . Exam Vital Signs Vital Sign - Last Date Time Temp Pulse Resp B/P Pulse Ox O2 Delivery O2 Flow Rate FiO2 10/17/16 04:00 36.7 69 17 156/51 94 Room Air Intake and Output 10/16/16 10/16/16 10/17/16 Cumulative From/Thru 15:00 23:00 07:00 10/15/16 11:10 - 10/17/16 05:47 Intake Total 360 ml 1650 ml Output Total 300 ml 750 ml 2513 ml Balance -300 ml -390 ml -863 ml Intake Oral 360 ml 1150 ml IV Total 500 ml Output Urine Total 300 ml 750 ml 2513 ml # Bowel Movements 0 0 Exam General: No acute distress, well-developed, well-nourished, appropriately interactive HEENT: Normocephalic, atraumatic. PERRLA, no scleral icterus, no lid lag. Moist mucosa. Neck: No jugular venous distension. No bruits. No lymphadenopathy. Right IJ- temporary pacemaker in place. Cardiovascular: Regular rate and rhythm, systolic ejection murmur, no rubs, or gallops appreciated Pulmonary: Clear to auscultation bilaterally with no crackles, wheezes, or rhonchi. Abdomen: Bowel tones present. Soft, nontender, nondistended. No hepatosplenomegaly or masses appreciated. Extremities: No clubbing, cyanosis, edema, or lymphadenopathy appreciated. Skin: Normal temperature, turgor, and texture; no rash, ulcers, or subcutaneous nodules appreciated. Neurological: Cranial nerves grossly intact. Normal muscle strength, tone, and bulk. IVs and Medications Medications Reviewed: Medications were reviewed in detail Lab and Diagnostics White Blood Count 6.1, Red Blood Count 5.03, Hemoglobin 13.3, Hematocrit 40.3, Mean Corpuscular Volume 80.1, Mean Corpuscular Hemoglobin 26.4, Mean Corpuscular Hemoglobin Concent 33.0, Red Cell Distribution Width 14.3, Platelet Count 243 Sodium Level 143, Potassium Level 4.2, Chloride Level 104, Carbon Dioxide Level 26, Blood Urea Nitrogen 12, Creatinine 0.54, Estimat Glomerular Filtration Rate 153, Glucose Level 101, Calcium Level 9.2, Magnesium Level 2.1 Result Diagram: 10/17/16 0320 10/17/16 0320 X-Rays, CTs and MRIs X-RAY CHEST ONE VIEW, PORTABLE (10/15/16) IMPRESSION: No acute cardiopulmonary abnormality Dictated and approved by: Red Krause M.D. on 10/15/2016 at 12:04 CT ANGIO CHEST PULMONARY EMBOLISM (10/15/16) IMPRESSION: 1. No acute pulmonary embolus. 2. Mild aortic atherosclerosis. Dictated and approved by: Idalmis Beatty M.D. on 10/15/2016 at 13:22 . 12-lead ECG EKG sinus at 71 QTC 492 ms right bundle branch and left anterior fascicular block and no acute ST segment changes personally reviewed Cardiac Echo Impressions ECHOCARDIOGRAM REPORT (10/15/16) Interpretation Summary The left ventricle is normal in size. The left ventricle is hyperdynamic. The ejection fraction is estimated to be 75-80%. The right ventricle is normal in size and function. The aortic valve is moderately calcified. The peak aortic velocity is 3.2 m/sec. The aortic valve mean gradient is 21 mmHg. The calculated aortic valve area is 1.4 cm2. There is moderate aortic stenosis. There is mild to moderate aortic regurgitation. There is mild tricuspid regurgitation. The right ventricular systolic pressure is estimated at 40 mmHg assuming a right atrial pressure of 3 mm Hg. Assessment & Plan 86-year-old female with a history of hypertension, hypothyroidism, depression and anxiety who presented to the ED with a two day history of near syncopal episodes at home. Observed syncope here in the hospital with paroxysmal complete AV block. She was taken to the clinical lab clerk 10/16/16 for temporary pacemaker placement and transferred to the CCU for continued observation until permanent pacemaker could be placed on 10/18/16. Hospital day #3. 1. Complete AV block, acute, present on admission. Active. - s/p temporary pacemaker placement 10/16/16; pt not on any AV mary carmen blocking agents - Potassium, magnesium wnl. TSH/free T4 (1.26/0.029) consistent with subclinical hyperthyroidism - NPO after midnight for permanent pacemaker placement by Dr. Kerns 10/18/16 2. Acute syncope, present on admission. Stable - Likely due to #1, treatment as above. 3. Iatrogenic subclinical hyperthyroidism, present on admission. Active. - Patient with hypothyroidism at baseline, on chronic Levothyroxine therapy - TSH 1.26, free T4 0.029 and pt asymptomatic. - Continue Levothyroxine at current dose. - Recommend repeat thyroid function panel in 4-6wks as outpatient 4. Chronic aortic stenosis, present on admission. Stable. - Moderate and stable, no further evaluation or treatment at this time. 5. Chronic depression and anxiety, present on admission. Stable. - Continue home dosing Doxepin, 10mg po qhs. 6. Chronic hypothyroidism, present on admission. Active. - Thyroid function panel and treatment as above, #2 Acetaminophen-fever/headache/mild/moderate pain Antiemetics, as needed Bowel regimen, as needed. Disposition: Patient lives at home and is independent with ADLs. Anticipated discharge in 2-3 days pending permanent pacemaker placement. Pain Evaluation: Adequate Pain Control GI Prophylaxis: Not indicated VTE Prophylaxis: SCDs VTE Mechanical Devices: Intermittant Pneumatic CD Resuscitation Status: DNR/DNI:Do Not Resuscitate/Intubate Attending Statement The patient was seen and examined together with Dr. Andrews on 10-17-16 and I agree with the history, exam and plan as outlined in the note above. Shirin Andrews DO Oct 17, 2016 08:10 Maria Elena Tolliver MD Oct 18, 2016 15:50
[2016-10-17 16:30] VITALS: BP 139/59; PULSE 69; RESP 17; O2SAT 94
[2016-10-17 20:00] VITALS: BP 145/86; PULSE 74; RESP 20; O2SAT 94
[2016-10-18] VITALS (13 sets, daily range): BP systolic 108–144; BP diastolic 43–78; PULSE 59–76; RESP 14–20; O2SAT 94–97
[2016-10-18] MEDS: Sodium Chloride LOK Flush 10 mL Syringe IVFLUSH SCH ×8 (00:30→23:46)
--- NOTE | 2016-10-18 01:20 | NUR ---
temporary pacer right ij transvenous pacer in place, rate = 50, ma=15, sensitivity=1, 34cm, tele- sr, rare pac's, occ pvc, hr 60-70's, bp stable, bedrest, pacer setting changed and placement changed during day shift per managing partner [employer] [place], pt denies n/v, bm times one, voiding per bp, denies sob, ls=clear, ra sats mid 90's, denies cp pt a/o times three, pleasant, plan:continue monitoring, permanent pacer placement in am, npo after mn,
[2016-10-18 04:20] LABS: INR 1.01 ratio
[2016-10-18] MEDS ORDERED: 0.9% Sodium Chloride 1,000 ML IV PRN (06:00)
[2016-10-18] MEDS ORDERED: 0.9% Sodium Chloride 250 ML ONE ×2 (08:08→23:43)
[2016-10-18] MEDS ORDERED: Bupivacaine-MPF 0.5% 30 mL Inj ONE (08:08)
[2016-10-18] MEDS ORDERED: 0.9% Sodium Chloride 1,000 ML ONE (08:08)
[2016-10-18] MEDS ORDERED: Heparin 5,000 Units/500 mL NS Premix IV ONE (08:08)
[2016-10-18] MEDS ORDERED: CeFAZolin 2 Gm/50 mL D5W Duplex Bag IV ONE (08:28)
[2016-10-18] MEDS ORDERED: fentaNYL-PF 50 mCg/mL 2 mL Inj ONE (08:47)
[2016-10-18] MEDS: 0.9% Sodium Chloride 1,000 ML IV SCH ×3 (09:45→19:26)
--- NOTE | 2016-10-18 11:44 | NUR ---
Pacer recovery Pt to laboratory phlebotomist at 0820 for pacemaker placement, back at 1015 in stable condition. A&O x3, on NS at 100ml until adequate PO taken. Dressing C/D/I with no drainage or swelling noted. Pt denies any chest pain, SOB, N&V. Sitting in bed asking for something to drink. Tolerating water and juice well. Family at bedside. Pt educated on pacemaker precautions, sling ordered from CS. See CCU interventions for recovery. Changed to [facility] status at 1130.
--- NOTE | 2016-10-18 13:04 | PCM.PNMED ---
Subjective Date of Service Oct 18, 2016 Subjective Lindsay Kennedy is an 86-year-old female with a history of hypertension, hypothyroidism, depression and anxiety who presented to the ED with a two day history of near syncopal episodes at home. Observed syncope here in the hospital with paroxysmal complete AV block and taken to the laboratory specialist on 10/16/16 for temporary pacemaker placement. Permanent pacemaker placed 10/18/[address] Kerns. Hospital day 4. No acute events overnight. Patient tolerated permanent pacemaker placement by Dr. Kerns this morning without complications. Currently sitting in bed alert and oriented 3. She denies any shortness of breath, chest pain, or dizziness. Regular bowel movements and urination. Exam Vital Signs Vital Sign - Last Date Time Temp Pulse Resp B/P Pulse Ox O2 Delivery O2 Flow Rate FiO2 10/18/16 04:00 36.6 60 18 136/57 94 Room Air Intake and Output 10/17/16 10/17/16 10/18/16 Cumulative From/Thru 15:00 23:00 07:00 10/15/16 11:10 - 10/18/16 06:05 Intake Total 800 ml 240 ml 2690 ml Output Total 1200 ml 700 ml 4413 ml Balance -400 ml -460 ml -1723 ml Intake Oral 800 ml 240 ml 2190 ml IV Total 500 ml Output Urine Total 1200 ml 700 ml 4413 ml # Bowel Movements 1 1 Exam General: No acute distress, well-developed, well-nourished, appropriately interactive HEENT: Normocephalic, atraumatic. PERRLA, no scleral icterus, no lid lag. Moist mucosa. Neck: No jugular venous distension. No bruits. No lymphadenopathy. Cardiovascular: Regular rate and rhythm, systolic ejection murmur, no rubs, or gallops appreciated. Pulmonary: Clear to auscultation bilaterally with no crackles, wheezes, or rhonchi. Abdomen: Bowel tones present. Soft, nontender, nondistended. No hepatosplenomegaly or masses appreciated. Extremities: No clubbing, cyanosis, edema, or lymphadenopathy appreciated. Skin: Surgical incision in left chest wall from pacemaker placement. Normal temperature, turgor, and texture; no rash, ulcers, or subcutaneous nodules appreciated. Neurological: Cranial nerves grossly intact. Normal muscle strength, tone, and bulk. Lab and Diagnostics Result Diagram: 10/17/16 0320 10/18/16 0355 X-Rays, CTs and MRIs X-RAY CHEST ONE VIEW, PORTABLE (10/15/16) IMPRESSION: No acute cardiopulmonary abnormality Dictated and approved by: Red Krause M.D. on 10/15/2016 at 12:04 CT ANGIO CHEST PULMONARY EMBOLISM (10/15/16) IMPRESSION: 1. No acute pulmonary embolus. 2. Mild aortic atherosclerosis. Dictated and approved by: Idalmis Beatty M.D. on 10/15/2016 at 13:22 . 12-lead ECG EKG sinus at 71 QTC 492 ms right bundle branch and left anterior fascicular block and no acute ST segment changes personally reviewed Cardiac Echo Impressions ECHOCARDIOGRAM REPORT (10/15/16) Interpretation Summary The left ventricle is normal in size. The left ventricle is hyperdynamic. The ejection fraction is estimated to be 75-80%. The right ventricle is normal in size and function. The aortic valve is moderately calcified. The peak aortic velocity is 3.2 m/sec. The aortic valve mean gradient is 21 mmHg. The calculated aortic valve area is 1.4 cm2. There is moderate aortic stenosis. There is mild to moderate aortic regurgitation. There is mild tricuspid regurgitation. The right ventricular systolic pressure is estimated at 40 mmHg assuming a right atrial pressure of 3 mm Hg. Assessment & Plan Lindsay Kennedy is an 86-year-old female with a history of hypertension, hypothyroidism, depression and anxiety who presented to the ED with a two day history of near syncopal episodes at home. Observed syncope here in the hospital with paroxysmal complete AV block and taken to the laboratory specialist on 10/16/16 for temporary pacemaker placement. Permanent pacemaker placed 10/18/[address] Kerns. Hospital day 4. 1. Complete AV block, acute, present on admission. Active. - Permanent pacemaker placed this morning (10/18/16) by Dr. Kerns without complications. - Temporary pacemaker placed on 10/16/16 removed. Patient not on any AV mary carmen blocking agents - Potassium, magnesium wnl. TSH/free T4 (1.26/0.029) consistent with subclinical hyperthyroidism - Will continue to monitor on telemetry. 2. Acute syncope, present on admission. Stable - Likely due to #1, treatment as above. 3. Iatrogenic subclinical hyperthyroidism, present on admission. Active. - Patient with hypothyroidism at baseline, on chronic Levothyroxine therapy - TSH 1.26, free T4 0.029 and pt asymptomatic. - Continue Levothyroxine at current dose. - Recommend repeat thyroid function panel in 4-6wks as outpatient 4. Chronic aortic stenosis, present on admission. Stable. - Moderate and stable, no further evaluation or treatment at this time. 5. Chronic depression and anxiety, present on admission. Stable. - Continue home dosing Doxepin, 10mg po qhs. 6. Chronic hypothyroidism, present on admission. Active. - Thyroid function panel and treatment as above, #2 Acetaminophen-fever/headache/mild/moderate pain Antiemetics, as needed Bowel regimen, as needed. Disposition: Patient lives at home and is independent with ADLs. Anticipated discharge in 1-2 days. GI Prophylaxis: Not indicated VTE Prophylaxis: SCDs VTE Mechanical Devices: Intermittant Pneumatic CD Resuscitation Status: DNR/DNI:Do Not Resuscitate/Intubate Attending Statement The patient was seen and examined together with Dr. Marrero on 10/18/2016 and I agree with the history, exam and plan as outlined in the note above. . MARCELA MARRERO DO Oct 18, 2016 06:36 Jos Cuenca MD Oct 19, 2016 18:11
--- NOTE | 2016-10-18 14:52 | DRSVH ---
PROCEDURE: X-RAY CHEST ONE VIEW, PORTABLE ([id number]) INDICATIONS: For new leads placed TECHNIQUE: One view of the chest was acquired. COMPARISON: [facility], CT, CT ANGIO CHEST PE, 10/15/2016, 12:15. [facility] , ECH, ECHO COMPLETE, 10/15/2016, 14:48. [facility], CR, XR CHEST 1VW (PORTABLE), 10/15/19 17, 11:13. FINDINGS: Surgical changes and devices: There is a cardiac pacemaker in expected position. Lungs and pleura: No pleural effusions or pneumothorax. Lungs are clear. Mediastinum: Mediastinal contours appear normal. Heart size is normal. Bones and chest wall: No suspicious bony lesions. Overlying soft tissues appear unremarkable. Krista re right shoulder joint degeneration is noted. IMPRESSION: No acute cardiopulmonary disease. Dictated by: Juvenal Abarca M.D. on 10/18/2016 at 14:50 Approved by: Juvenal Abarca M.D. on 10/18/2016 at 14:50
[2016-10-18] MEDS: CeFAZolin Inj 1 GM in IV Premix 1 EACH IV SCH ×2 (17:26→23:47)
--- NOTE | 2016-10-18 17:47 | NUR ---
Transfer [facility] Patient a/o x 3, c/o mild left chest incision tenderness, but declined pain meds this shift. Left chest drsg c/d/i. Right neck drsg c/d/i. VSS. Tele SR. Patient oob amb to bathroom with min one person assist, stephen well. Patient sat in chair for dinner, c/o left lateral side pain with deep breaths, but declined need to lie down or pain meds. Left arm sling inplace. Teaching done with patient and family regarding left arm restrictions. Pateint verbalized understanding. Will cont poc.
--- NOTE | 2016-10-18 20:21 | OP ---
[address] [address] OPERATIVE REPORT PATIENT: FERNANDO KENNEDY : 1930 MR#: [id number] ADMIT: 10/15/2016 JOB ID: [id number] DATE OF SURGERY: 10/18/2016 PREOPERATIVE DIAGNOSIS(ES): 1. Intermittent complete heart block. 2. Syncope. POSTOPERATIVE DIAGNOSIS(ES): 1. Intermittent complete heart block. 2. Syncope. PROCEDURES PERFORMED: 1. Dual-chamber pacemaker implantation. 2. Left upper extremity venogram. 3. Fluoroscopy. SURGEON: Matt Kerns MD, electrophysiology. SOFTWARE CONFIGURATION ENGINEER: Sheng Kaiser. IMPLANTED DEVICE: 1. [employer] MRI pulse generator, model L331, serial #[id number]. 2. Right atrial lead: [employer] Ingevity MRI, model 7740, serial #[id number]. 3. RV lead: [employer] Ingevity MRI, model 7741, serial #[id number]. ANESTHESIA: Bolus dosing of Versed and fentanyl were utilized for appropriate level of sedation. INDICATION: Mrs. Kennedy is a pleasant, 86-year-old woman with a structurally normal heart and intermittent complete heart block along with syncope. After discussion of the risks and benefits of pacemaker implantation, she opted to proceed. She does have a temporary pacing wire placed through the right internal jugular vein for safety over the weekend. PROCEDURAL DESCRIPTION: Following informed consent, the patient was taken to the EP laboratory in a fasting nonsedated state, where she was prepped and draped in the usual sterile fashion. The left infraclavicular region was infiltrated with 40 cc of a 50/50 mixture of bupivacaine and lidocaine. Once adequate anesthesia had been achieved, a 3 cm transverse incision was performed 2 cm below the left clavicle. Dissection was carried down to the pectoralis fascia. The pocket was then fashioned using a combination of electrocautery and blunt dissection. Once adequate hemostasis had been achieved, a left upper extremity venogram was performed under venographic guidance. The left axillary vein was cannulated over the first rib twice deploying two 0.035, 3 mm J guidewires. Over the first of these, a 6-Tajik tear-away sheath was advanced. Once the guidewire was removed an active fixation lead was advanced to the RV outflow tract RV apex. The lead was affixed in position using its associated active fixation screw. It was connected to the external analyzer and demonstrated appropriate sensing of R- waves, impedance, capture threshold. The lead was checked to 10 V and there was no evidence of diaphragmatic stimulation. Attention was now paid to placement of the right atrial lead. Over the previously deployed J guidewire, another 6-Tajik tear-away sheath was advanced. Once the guidewire was removed, an active fixation lead was advanced to the right atrial appendage. It was affixed in position using its associated active fixation screw. The lead was connected to the external analyzer and demonstrated appropriately sensed P-waves, impedance, capture threshold. The lead was checked to 10 V and there was no evidence of diaphragmatic stimulation. Once the position and redundancy of both leads had been confirmed in multiple fluoroscopic views, the leads were anchored to the prepectoralis fascia using their associated anchoring sleeves and two heavy Ethibond sutures. The pocket was then copiously irrigated with antibiotic solution. The leads were connected to a generator. The generator was placed in the pocket. It was affixed to the floor of the pocket using 1-0 Ti-Cron suture. The incision was then closed with running layers of absorbable suture. The wound was dressed with skin adhesive and a small dressing at the end of the procedure. The needle, sponge, and instrument counts were all correct. The right internal jugular transvenous pacing wire and sheath were removed under fluoroscopic guidance, ensuring non-dislodgement of the chronic leads. COMPLICATIONS: None. ESTIMATED BLOOD LOSS: Negligible. DEVICE MEASURED DATA: 1. Right atrial lead: 7.0 mV, 0.6 V at 0.4 msec, 752 ohms. 2. RV lead: 18.2 mV, 0.4 V at 0.4 msec, 952 ohms. FINAL PROGRAMMED PARAMETERS: DDD 60-130 beats per minute. IMPRESSION: Successful dual-chamber pacemaker implantation. PLAN: 1. Stat portable chest x-ray. 2. PA and lateral chest x-ray in the morning. 3. Device interrogation. 4. IV Ancef through tomorrow. Keflex x7 days , 5. Wound check in one week. ATTENDING STATEMENT: IMatt MD, was present for and supervised or performed all aspects of this procedure.
[2016-10-18 21:46] LABS: APPEARANCE,URINE CLEAR (CLEAR,HAZY); COLOR,URINE STRAW (YELLOW)
[2016-10-18 21:47] LABS: OCCULT BLOOD,URINE NEGATIVE (NEGATIVE); PH,URINE 6.5 (5.0-8.0); UROBILINOGEN,URINE NORMAL (NORMAL)
[2016-10-19 00:07] VITALS: BP 124/62; PULSE 66; RESP 16; O2SAT 94
[2016-10-19 04:00] LABS: Magnesium 2.1 mg/dL (1.6-2.6)
[2016-10-19 04:41] VITALS: BP 141/71; PULSE 64; RESP 16; O2SAT 97
--- NOTE | 2016-10-19 05:26 | NUR ---
Mobility Pt SBA in room to BR, light assistance required at beginning of shift for ambulating, pt improved to SBA only throughout shift. Pt denies dizziness, fatigue, or light-headedness. VSS, tele SR 70s. Neck and chest dressings C/D/I. Pt compliant with sling.
[2016-10-19] MEDS: Sodium Chloride LOK Flush 10 mL Syringe IVFLUSH SCH ×2 (07:56→07:58)
[2016-10-19 08:00] VITALS: PULSE 65
[2016-10-19 08:05] VITALS: BP 155/76; PULSE 65; RESP 16; O2SAT 98
[2016-10-19 08:10] VITALS: PULSE 65
--- NOTE | 2016-10-19 09:11 | DRSVH ---
PROCEDURE: X-RAY CHEST, TWO VIEWS ([id number]) INDICATIONS: For new lead placement TECHNIQUE: 2 views of the chest were acquired. COMPARISON: [facility], CR, XR CHEST 1VW (PORTABLE), 10/18/2016, 11:22. FINDINGS: Surgical changes and devices: Cardiac pacemaking device and dual chamber leads normal. Lungs and pleura: No pleural effusions or pneumothorax. Lungs are clear. Mediastinum: Mediastinal contours are normal. Heart size is normal. Bones and chest wall: No suspicious bony abnormalities. Soft tissues appear unremarkable. IMPRESSION: Normal appearance of the chest except for presence of pacemaking device and dual chamber leads. Dictated by: Jeremy Dewey M.D. on 10/19/2016 at 9:09 Approved by: Jeremy Dewey M.D. on 10/19/2016 at 9:09
--- NOTE | 2016-10-19 09:36 | PCM.DIMED ---
MARCELA MARRERO DO 10/19/16 0935: Discharge Instructions Date of Service Oct 19, 2016 Dates of Hospitalization Oct 15, 2016 at 14:41 Discharge Diagnosis Discharge Diagnosis 1. Complete AV block, acute, present on admission. Stable s/p pacemaker placement. 2. Acute syncope, present on admission. Resolved. 3. Iatrogenic subclinical hyperthyroidism, present on admission. Active. 4. Chronic aortic stenosis, present on admission. Stable. 5. Chronic depression and anxiety, present on admission. Stable. 6. Chronic hypothyroidism, present on admission. Medication Instructions Please complete a one-week course of antibiotics as follows: - Keflex 500 mg twice a day for 7 days. No other changes to your medications have been made during hospitalization. Diet No restrictions Activity No restrictions Call your provider Fever or Chills, Shortness of breath, Bleeding, Chest pain, Weakness (unilateral ) Patient Instructions - Please complete a one-week course of antibiotics with Keflex as directed above. - Follow up with pacemaker clinic in one week and Artur ESTEVEZ in 6 weeks as scheduled. - Follow up with primary care provider, Dr. Lozada, in one week. At this appointment please discuss further thyroid testing as your values were slightly abnormal which is likely due to your acute illness. Follow-up Provider: Tova Lozada MD Follow-up with PCP in: 1 week [facility] Follow-up in: 1 week (As scheduled) Mid-level Provider (F9): Artur Arriaza PA-C Follow-up with Mid-level in: 6 weeks (As scheduled) Jos Cuenca MD 10/19/16 1812: Discharge Instructions Attending's Statement The patient was seen and examined together with Dr. Marrero on 10/19/2016 and I agree with the history, exam and plan as outlined in the note above. . MARCELA MARRERO DO Oct 19, 2016 09:35 Jos Cuenca MD Oct 19, 2016 18:12
[2016-10-19] MEDS ORDERED: CEPH-512 PO (09:37)
--- NOTE | 2016-10-19 10:45 | NUR ---
Discharge note Patient a/o x 3, c/o mild pain at incision site, Tylenol given with good effect. Left chest incision open to air, no drainage. Pateint oob amb in room indep steady gait. Left arm in sling and teaching done with patient and family on placement. IV SL x 1 and tele removed intact. Patient and family given discharge instructions, medication reconciliation, info on pacemaker and post op care, and prescription. All questions answered. Pateint taken to the car via wheelchair with all belongings and discharged home with family.
--- NOTE | 2016-10-19 14:57 | PCM.DC.MED ---
Discharge Summary Date of Service Oct 19, 2016 Dates of Hospitalization Date of Hospital Admission Oct 15, 2016 at 14:41 Date of Discharge: Oct 19, 2016 Providers: Admitting Physician: Bret Laura MD Primary Care Physician: Tova Lozada MD Attending Physician: Bret Laura MD Diagnosis at Time of Discharge Diagnosis at Time of Discharge 1. Complete AV block, acute, present on admission. Stable s/p pacemaker placement. 2. Acute syncope, present on admission. Resolved. 3. Iatrogenic subclinical hyperthyroidism, present on admission. Active. 4. Chronic aortic stenosis, present on admission. Stable. 5. Chronic depression and anxiety, present on admission. Stable. 6. Chronic hypothyroidism, present on admission. Consultations Cardiology - Dr. Ch and Dr. Kerns Procedures XRay, CTs & MRIs X-RAY CHEST ONE VIEW, PORTABLE (10/15/16) IMPRESSION: No acute cardiopulmonary abnormality Dictated and approved by: Red Krause M.D. on 10/15/2016 at 12:04 CT ANGIO CHEST PULMONARY EMBOLISM (10/15/16) IMPRESSION: 1. No acute pulmonary embolus. 2. Mild aortic atherosclerosis. Dictated and approved by: Idalmis Beatty M.D. on 10/15/2016 at 13:22 . ECG 12 Lead EKG sinus at 71 QTC 492 ms right bundle branch and left anterior fascicular block and no acute ST segment changes personally reviewed Cardiac Echo Impression ECHOCARDIOGRAM REPORT (10/15/16) Interpretation Summary The left ventricle is normal in size. The left ventricle is hyperdynamic. The ejection fraction is estimated to be 75-80%. The right ventricle is normal in size and function. The aortic valve is moderately calcified. The peak aortic velocity is 3.2 m/sec. The aortic valve mean gradient is 21 mmHg. The calculated aortic valve area is 1.4 cm2. There is moderate aortic stenosis. There is mild to moderate aortic regurgitation. There is mild tricuspid regurgitation. The right ventricular systolic pressure is estimated at 40 mmHg assuming a right atrial pressure of 3 mm Hg. Brief History Per Dr. Laura's H&P: 86-year-old female generally healthy not on beta blockers having near syncopal episodes after exerting herself. A murmur was heard in the emergency room and an echocardiogram was obtained to rule out aortic stenosis. Patient has moderate aortic stenosis. While here on the floor she got up from the commode and transferred and had a 3.1 second pause and head which she described as mild near syncopal symptoms. She denies any chest pain, no actual falling and has been otherwise well prior to this and these events have never occurred until the last couple days. The pt was using an exercise cycle and heard her phone ring. She got up to answer the phone and felt very lightheaded. She went down to her knees to . She stood up to call her son-in-law and then rested lying down on the couch. Her lightheadedness persisted although she was lying down. She experienced a similar episode 2 days ago but with far less severity. She notes unusual dyspnea on exertion while she was using her treadmill a few days ago. She denies CP, SOB, focal numbness or weakness, vision change, speech change, dysuria, nausea, vomiting, diarrhea, cough, fever. She is feeling OK at time of interview. Hospital Course Lindsay Kennedy is an 86-year-old female with a history of hypertension, hypothyroidism, depression and anxiety who presented to the ED with a two day history of near syncopal episodes at home. Observed syncope here in the hospital with paroxysmal complete AV block and taken to the hospital laboratory technician on 10/16/16 for temporary pacemaker placement. Permanent pacemaker placed 10/18/[address] Kerns. 1. Complete AV block, acute, present on admission. S/p pacemaker placement on 10-18-16. - Permanent pacemaker placed this morning (10/18/16) by Dr. Kerns without complications. - Temporary pacemaker placed on 10/16/16 removed. Patient not on any AV mary carmen blocking agents - Potassium, magnesium wnl. TSH/free T4 (1.26/0.029) consistent with subclinical hyperthyroidism 2. Acute syncope, present on admission. Stable - Likely due to #1, treatment as above. 3. Iatrogenic subclinical hyperthyroidism, present on admission. Active. - Patient with hypothyroidism at baseline, on chronic Levothyroxine therapy - TSH 1.26, free T4 0.029 and pt asymptomatic. - Continue Levothyroxine at current dose. - Recommend repeat thyroid function panel in 4-6wks as outpatient 4. Chronic aortic stenosis, present on admission. Stable. - Moderate and stable, no further evaluation or treatment at this time. 5. Chronic depression and anxiety, present on admission. Stable. - Continue home dosing Doxepin, 10mg po qhs. 6. Chronic hypothyroidism, present on admission. Active. - Thyroid function panel and treatment as above, #2 Exam Vital Signs (Last) Date Time Temp Pulse Resp B/P Pulse Ox O2 Delivery O2 Flow Rate FiO2 10/19/16 08:10 65 10/19/16 08:05 36.3 16 155/76 98 Room Air Exam General: No acute distress, well-developed, well-nourished, appropriately interactive HEENT: Normocephalic, atraumatic. PERRLA, no scleral icterus, no lid lag. Moist mucosa. Neck: No jugular venous distension. No bruits. No lymphadenopathy. Cardiovascular: Regular rate and rhythm, systolic ejection murmur, no rubs, or gallops appreciated. Pulmonary: Clear to auscultation bilaterally with no crackles, wheezes, or rhonchi. Abdomen: Bowel tones present. Soft, nontender, nondistended. No hepatosplenomegaly or masses appreciated. Extremities: No clubbing, cyanosis, edema, or lymphadenopathy appreciated. Skin: Surgical incision in left chest wall from pacemaker placement. Normal temperature, turgor, and texture; no rash, ulcers, or subcutaneous nodules appreciated. Neurological: Cranial nerves grossly intact. Normal muscle strength, tone, and bulk. Test 10/15/16 11:13 10/15/16 11:31 10/16/16 09:59 10/17/16 03:20 Neutrophils (%) (Auto) 64.7% (40-74) Lymphocytes (%) (Auto) 23.4% (14-46) Monocytes (%) (Auto) 8.7% (4-12) Eosinophils (%) (Auto) 2.5% (0-5) Basophils (%) (Auto) 0.4% (0-3) D-Dimer 3.8mg/L (<0.50) Total Bilirubin 0.3mg/dL (0.0-1.2) Aspartate Amino Transf (AST/SGOT) 21U/L (0-50) Alanine Aminotransferase (ALT/SGPT) 11U/L (0-32) Alkaline Phosphatase 79U/L (25-165) Total Creatine Kinase 83U/L (21-215) Creatine Kinase MB 2.6ng/mL (0.0-5.3) Creatine Kinase MB % % (0.0-5.0) Troponin T < 0.010ug/L (0.0-0.011) Pro-B-Type Natriuretic Peptide 499.3pg/mL (0-738) Total Protein 7.3g/dL (6.4-8.4) Albumin 3.7g/dL (3.4-5.0) Hold Urine Received (Received) Thyroid Stimulating Hormone (TSH) 0.291uIU/mL (0.450-4.500) Free Thyroxine 1.26ng/dL (0.82-1.77) White Blood Count 6.1th/mm3 (3.8-10.1) Red Blood Count 5.03mil/mm3 (3.90-5.20) Hemoglobin 13.3g/dL (12.0-15.6) Hematocrit 40.3% (35.0-46.0) Mean Corpuscular Volume 80.1fL (81-100) Mean Corpuscular Hemoglobin 26.4pg (27.0-35.0) Mean Corpuscular Hemoglobin Concent 33.0% (32.0-37.0) Red Cell Distribution Width 14.3% (12.3-15.4) Platelet Count 243bil/L (150-400) Test 10/18/16 03:55 10/18/16 20:32 10/19/16 03:15 Prothrombin Time 10.8sec (8.1-12.5) Prothromb Time International Ratio 1.01ratio Urine Color Straw (YELLOW) Urine Appearance Clear (CLEAR,HAZY) Urine pH 6.5 (5.0-8.0) Urine Specific [place] <1.005 (1.003-1.035) Urine Protein Negativemg/dL (NEG,TRACE) Urine Glucose (UA) Negativemg/dL (NEGATIVE) Urine Ketones Negativemg/dL (NEGATIVE) Urine Occult Blood Negative (NEGATIVE) Urine Nitrite Negative (NEGATIVE) Urine Bilirubin Negative (NEGATIVE) Urine Urobilinogen Normalmg/dL (NORMAL) Urine Leukocyte Esterase Small (NEGATIVE) Urine RBC 0-2/hpf (0-2) Urine WBC 0-5/hpf (0-5) Urine Epithelial Cells Few/hpf (NONE-MOD) Urine Crystals None seen (NONE SEEN) Urine Bacteria Few/hpf (NONE-FEW) Urine Hyaline Casts None/lpf (NONE) Urine Granular Casts None seen (NONE SEEN) Urine Waxy Casts None seen (NONE SEEN) Urine Red Blood Cell Casts None seen (NONE SEEN) Urine White Blood Cell Casts None seen (NONE SEEN) Urine Mucus Present (None Seen) Urine Trichomonas None seen (NONE SEEN) Urine Yeast None (NONE SEEN) Urinalysis Comment Starch Urine Culture Reflexed Indicated Sodium Level 140mEq/L (134-144) Potassium Level 4.1mEq/L (3.5-5.2) Chloride Level 103mEq/L (97-108) Carbon Dioxide Level 23mmol/L (18-29) Blood Urea Nitrogen 14mg/dL (8-27) Creatinine 0.60mg/dL (0.57-1.00) Estimat Glomerular Filtration Rate 135mL/min (>59) Glucose Level 99mg/dL (60-99) Calcium Level 8.7mg/dL (8.5-10.1) Magnesium Level 2.1mg/dL (1.6-2.6) Discharge Medications Discharge Medications Alendronate Sodium (Fosamax) 70 Mg Tablet 70 MG PO WEEKLY (Reported) Tuesdays Ascorbate Calcium (Vitamin C) 500 Mg Tablet 500 MG PO DAILY (Reported) Ca Carbonate/Vitamin D3/Vit K (Citracal Soft Chew) 1 Each Tab.chew 1 EACH PO DAILY (Reported) Cephalexin (Keflex) 500 Mg Capsule 500 MG PO BID Prescribed by: MARCELA MARRERO DO Cetirizine HCl (Zyrtec) 10 Mg Capsule 10 MG PO DAILY (Reported) Cholecalciferol (Vitamin D3) (Vitamin D) 1,000 Unit Capsule 2,000 UNIT PO DAILY (Reported) Doxepin (Doxepin) 10 Mg Capsule 10 MG PO HS (Reported) Fluocinonide 0.05% Solution (Fluocinonide 0.05% Solution) 60 Ml Solution 1 APPLIC TOPICAL every other day (Reported) shampoo for scalp Folic Acid/Mv,Fe,Other Min (Centrum Chewable Tablet) 1 Each Tab.chew 1 EACH PO DAILY (Reported) Gluc 2Kcl/Chondr/Zi Hy/Hy AC (Glucosamine & Chondroitin Cap) 1 Each Capsule 1 EACH PO BID (Reported) Levothyroxine (Levothyroxine) 75 Mcg Tablet 112 MCG PO DAILY (Reported) 112mcg on Mondays and Fridays Levothyroxine (Levothyroxine) 75 Mcg Tablet 75 MCG PO DAILY (Reported) 75mcg on Sundays, Tuesdays, Wednesdays, , Saturdays Melatonin (Melatonin) 5 Mg Tablet 5 MG PO HS (Reported) Simvastatin (Simvastatin) 80 Mg Tablet 80 MG PO HS (Reported) Vit B Comp/C/FA/Iron/Vit E (Vitamin B Complex Tablet) 1 Each Tablet 1 EACH PO DAILY (Reported) As needed ([Ketaconazole Shampoo]) 1 APPLIC TP 2-3X/WEEK PRN PRN PRN (Reported) 2% Additional med instructions Please complete a one-week course of antibiotics as follows: - Keflex 500 mg twice a day for 7 days. No other changes to your medications have been made during hospitalization. Followup Plan Discharge Diet: No restrictions Discharge Activity: No restrictions Patient Instructions - Please complete a one-week course of antibiotics with Keflex as directed above. - Follow up with pacemaker clinic in one week and Artur ESTEVEZ in 6 weeks as scheduled. - Follow up with primary care provider, Dr. Lozada, in one week. At this appointment please discuss further thyroid testing as your values were slightly abnormal which is likely due to your acute illness. Follow-up Provider: Tova Lozada MD Follow-up with PCP in: 1 week Provider: [facility] Follow-up in: 1 week (As scheduled) Mid-level Provider: Artur Arriaza PA-C Follow-up with Mid-level in: 6 weeks (As scheduled) Time spent Greater than 30 minutes was spent in preparation of discharge with greater than 50% of that time dedicated to patient counseling and coordination of care. . Attending Statement The patient was seen and examined together with Dr. Marrero on 10/19/2016 and I agree with the history, exam and plan as outlined in the note above. . copies to: Tova Lozada MD, BETHANY A DO Oct 19, 2016 14:11 Jos Cuenca MD Oct 19, 2016 18:14
== END 2016-10-19 10:45 | disposition home or self-care (01) | DRG 244 ==
LOC: EDUNIT# 10:41 → SED 10:41 → EDBD 10:41 → OSC 14:41 → OBSVTOIN 14:41 → CCU 10-16 16:51 → PCC 10-18 11:53
PROVIDERS: ADMIT Hospitalist; ATTEND Hospitalist
PROC: 5A1213Z Performance of Cardiac Pacing, Intermittent (ICD-10-PCS; 2016-10-16)
PROC: 02H63JZ Insertion of Pacemaker Lead into Right Atrium, Percutaneous Approach (ICD-10-PCS; principal; 2016-10-18)
PROC: 0JH606Z Insertion of Pacemaker, Dual Chamber into Chest Subcutaneous Tissue and Fascia, Open Approach (ICD-10-PCS; 2016-10-18)
PROC: 02HK3JZ Insertion of Pacemaker Lead into Right Ventricle, Percutaneous Approach (ICD-10-PCS; 2016-10-18)
DX: I44.2 Atrioventricular block, complete (principal); I10 Essential (primary) hypertension; E03.2 Hypothyroidism due to medicaments and other exogenous substances; E78.5 Hyperlipidemia, unspecified; R55 Syncope and collapse; R01.1 Cardiac murmur, unspecified; I35.0 Nonrheumatic aortic (valve) stenosis; Z66 Do not resuscitate; F32.9 Major depressive disorder, single episode, unspecified; F41.9 Anxiety disorder, unspecified

== ENCOUNTER 2016-10-23 13:11 | Emergency (ER) | payer MEDICARE, OTHER ==
[~2016-10-23] VITALS: Ht 152.4 cm; Wt 70.5 kg
[~2016-10-23 13:11] MED LIST changes: -ALEN70SO3 PO; +ALEN70TA2 PO; -CALC100T2 PO; +CEPH-512 PO; -DESO15CR10 TOP; -DESO15CR25 TOP; +DOXE10CA PO; -FLUO118.2 TP; +GLUC-120 PO; +MELA5TAB14 PO; -OMEP20CA11 PO; +VIT1TABL83 PO; -[UNRECOGNIZED DRUG - OTHER] PO
[2016-10-23 13:13] VITALS: BP 159/77; PULSE 78; RESP 20; O2SAT 96
[2016-10-23 13:26] VITALS: BP 146/54; PULSE 74; RESP 19; O2SAT 97
[2016-10-23 15:00] VITALS: BP 139/58; PULSE 71; RESP 14; O2SAT 97
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
[2016-10-23 15:57] LABS: BASOPHILS % (AUTO) 0.3 % (0-3); EOSINOPHILS % (AUTO) 1.8 % (0-5); MONOCYTES % (AUTO) 7.5 % (4-12); Mean Corpuscular Hemoglobin 26.2 pg (27.0-35.0); Mean Corpuscular Volume 81.1 fL (81-100); NEUTROPHILS % (AUTO) 75.1 % (40-74); Platelet Count 209 bil/L (150-400)
--- NOTE | 2016-10-23 16:35 | DRSVH ---
PROCEDURE: X-RAY CHEST, TWO VIEWS ([id number]) INDICATIONS: near syncope, new pacemaker TECHNIQUE: 2 views of the chest were acquired. COMPARISON: [facility], CT, CT ANGIO CHEST PE, 10/15/2016, 12:15. [facility] , CR, XR CHEST 2VW, 10/19/2016, 6:46. FINDINGS: Surgical changes and devices: Left chest wall dual-lead pacemaker stable in position. Lungs and pleura: No pleural effusions or pneumothorax. Visualized lungs are clear. Mediastinum: Mediastinal contours are normal. Heart size is normal. Bones and chest wall: No suspicious bony abnormalities. Soft tissues appear unremarkable. IMPRESSION: 1. No acute cardiopulmonary disease. Dictated by: Дмитрий Plaza M.D. on 10/23/2016 at 16:34 Approved by: Дмитрий Plaza M.D. on 10/23/2016 at 16:34
[2016-10-23 17:26] VITALS: BP 139/58; PULSE 73; RESP 20; O2SAT 97
== END 2016-10-23 17:28 | disposition home or self-care (01) ==
LOC: SED 13:11
DX: R42 Dizziness and giddiness (principal); I10 Essential (primary) hypertension; Z87.19 Personal history of other diseases of the digestive system; Z86.39 Personal history of other endocrine, nutritional and metabolic disease; Z85.828 Personal history of other malignant neoplasm of skin; Z90.710 Acquired absence of both cervix and uterus; Z90.49 Acquired absence of other specified parts of digestive tract; Z95.0 Presence of cardiac pacemaker; Z88.1 Allergy status to other antibiotic agents; Z88.8 Allergy status to other drugs, medicaments and biological substances

== ENCOUNTER 2017-02-25 13:44 | Emergency (ER) | payer MEDICARE, OTHER ==
[~2017-02-25] VITALS: Ht 149.9 cm; Wt 72.7 kg
[2017-02-25 13:55] VITALS: BP 148/86; PULSE 80; RESP 12; O2SAT 78
--- NOTE | 2017-02-25 15:06 | DRSVH ---
PROCEDURE: X-RAY RIGHT HAND, MINIMUM THREE VIEWS ([id number]) INDICATIONS: trauma TECHNIQUE: 3 views of the hand(s) acquired. COMPARISON: [facility], CR, XR WRIST 3VW RT, 02/25/2017, 14:44. FINDINGS: Bones: The bone mineralization is diffusely decreased. There is a deformity evident involving the ne ck of the 5th metacarpal, which is suspicious for an acute fracture. Otherwise, the remainder of the osseous structures appear to be intact. Advanced degenerative changes are noted involving the metac arpal phalangeal and interphalangeal joints of the right hand, more prominent involving the index fin karine. No suspicious osseous lesions are identified. Degenerative changes involving the basal joint o f the thumb are noted. Soft tissues: No suspicious soft tissue calcifications. Soft tissue swelling overlying the 5th meta carpal is present. No unexpected radiopaque foreign bodies are evident. IMPRESSION: 1. Deformity involving the distal 5th metacarpal is suggestive of an acute fracture. Please correla te clinically. 2. Osteopenia and advanced degenerative changes of the hand as described. Dictated by: Eddie Marquez M.D. on 02/25/2017 at 14:03 Approved by: Eddie Marquez M.D. on 02/25/2017 at 14:04
--- NOTE | 2017-02-25 15:07 | DRSVH ---
PROCEDURE: X-RAY RIGHT WRIST COMPLETE, MINIMUM THREE VIEWS ([id number]) INDICATIONS: trauma TECHNIQUE: 4 views of the wrist were acquired. COMPARISON: [facility], CR, XR HAND 3VW RT, 02/25/2017, 14:44. FINDINGS: Bones: Deformity at the neck of the 5th metacarpal is present, suspicious for an acute fracture. Oth erwise, the remainder of the imaged osseous structures of the right wrist are intact. The bone securities compliance examiner alization is diffusely decreased. There are mild to moderate degenerative changes present involving the basal joint of the thumb. Soft tissues: No suspicious soft tissue calcifications. Soft tissue swelling about the 5th metacarp al is present. No unexpected radiopaque foreign bodies are evident. IMPRESSION: 1. Subtle deformity of the distal 5th metacarpal suspicious for an acute fracture. Please correlate clinically. 2. Mild to moderate degenerative changes involving the basal joint of the thumb. 2. Osteopenia. Dictated by: Eddie Marquez M.D. on 02/25/2017 at 14:05 Approved by: Eddie Marquez M.D. on 02/25/2017 at 14:05
--- NOTE | 2017-02-25 15:43 | ED.REPORT ---
HPI-Trauma Minor / Fall Date of Service February 25, 2017 ED Provider: Roby Pham MD 86 y/o female with a hx of HTN, hypothyroidism, hyperlipidemia and skin cancer presents to the ED complaining of right hand pain and facial abrasions post a fall, onset 5 hours ago. The pt reports she tripped on an extension cord and fell on the cement. She was holding a pot in the left hand and landed on her right hand. She also reports epistaxis post fall. She denies LOC and states she was able to get up immediately after the fall and go inside the house. The pt also denies lower extremity pain, neck pain, chest pain and abdominal pain. As per the pt's daughter the pt was "bleeding extensively" when she saw her. She used a wash cloth to clean the pt's face and reports a small flap of skin on the bridge of her nose. The pt had a right shoulder surgery 6 weeks ago. She is not taking any blood thinners Nursing Notes Stated Complaint: FELL/HEAD INJURY Chief Complaint: Multiple Trauma/Fall Nursing Notes Reviewed: Yes Allergies: Coded Allergies: erythromycin ethylsuccinate (Verified Allergy, Severe, HIVES, 10/15/16) naproxen (Verified Adverse Reaction, Severe, GI PROBLEMS, 10/15/16) Scheduled Alendronate Sodium (Fosamax) 70 Mg Tablet 70 MG PO WEEKLY Tuesdays Ascorbate Calcium (Vitamin C) 500 Mg Tablet 500 MG PO DAILY Ca Carbonate/Vitamin D3/Vit K (Citracal Soft Chew) 1 Each Tab.chew 1 EACH PO DAILY Cephalexin (Keflex) 500 Mg Capsule 500 MG PO BID Cetirizine HCl (Zyrtec) 10 Mg Capsule 10 MG PO DAILY Cholecalciferol (Vitamin D3) (Vitamin D) 1,000 Unit Capsule 2,000 UNIT PO DAILY Doxepin (Doxepin) 10 Mg Capsule 10 MG PO HS Fluocinonide 0.05% Solution (Fluocinonide 0.05% Solution) 60 Ml Solution 1 APPLIC TOPICAL every other day shampoo for scalp Folic Acid/Mv,Fe,Other Min (Centrum Chewable Tablet) 1 Each Tab.chew 1 EACH PO DAILY Gluc 2Kcl/Chondr/Zi Hy/Hy AC (Glucosamine & Chondroitin Cap) 1 Each Capsule 1 EACH PO BID Levothyroxine (Levothyroxine) 75 Mcg Tablet 112 MCG PO DAILY 112mcg on Mondays and Fridays Levothyroxine (Levothyroxine) 75 Mcg Tablet 75 MCG PO DAILY 75mcg on Sundays, Tuesdays, Wednesdays, , Saturdays Melatonin (Melatonin) 5 Mg Tablet 5 MG PO HS Simvastatin (Simvastatin) 80 Mg Tablet 80 MG PO HS Vit B Comp/C/FA/Iron/Vit E (Vitamin B Complex Tablet) 1 Each Tablet 1 EACH PO DAILY Scheduled PRN ([Ketaconazole Shampoo]) 1 APPLIC TP 2-3X/WEEK PRN PRN PRN 2% General Time Seen by MD: 15:40 Chief Complaint Fall Hx Obtained From: Patient Arrived By: Walk-in Onset Occurred: 5 - 8 hours ago Caused by: Fall on ground Location: Hand right Quality: Painful Severity: Current: Mild Severity: Maximum: Moderate Context: Immunizations Tetanus up to date Recent Healthcare: No recent doctor visit Similar Sx Previous: No Past Medical History Past Medical History Notes: Admit 10/15/16 for syncope 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 - > DC 10/19/16 Past Medical History Hypothyroid Hypertension Hyperlipidemia Hx Diverticulitis GERD Depression Anxiety Hx skin CA Past Surgical History [employer] 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 Cardiovascular: Denies: Chest pain GI: Denies: Abdominal pain Physical Exam Initial Vital Signs Vital Signs (First) Date Time Temp Pulse Resp B/P Pulse Ox O2 Delivery O2 Flow Rate FiO2 02/25/17 13:55 36.6 80 12 148/86 78 Room Air Initial VS: Reviewed Respiratory: Breath sounds normal, Clear to auscultation, No respiratory distress Cardiovascular: Regular rate & rhythm, Heart sounds normal, Intact distal pulses Abdomen / GI: Soft, Non-tender Skin: Warm, Dry, No cyanosis Neurologic: Alert, Oriented, Nonfocal General/Constitutional: Awake, Alert, Cooperative Neck: Atraumatic, Full range of motion Head / Eyes: Atraumatic, Normocephalic, PERRL Multiple abrasions/ small lacerations on the face Upper Extremity / MS: Full range of motion, Neurologic intact, Vascular intact Left Forearm: Positive: Tenderness present... (Distal radius) Wrist / Hand: Full range of motion, No snuffbox tenderness (Bilaterally) Right Hand: Positive: Ecchymosis present (Dense ecchymosis on the dorsal side) Interpretation & Diagnostics X-Ray Interpretation Xray Interpretation: IMPRESSION: 1. Subtle deformity of the distal 5th metacarpal suspicious for an acute fracture. Please correlate clinically. 2. Mild to moderate degenerative changes involving the basal joint of the thumb. 2. Osteopenia. Dictated by: Eddie Marquez M.D. on 02/25/2017 at 14:05 Approved by: Eddie Marquez M.D. on 02/25/2017 at 14:05 X-Ray Ordered: Wrist right Interpretation / Wet Read by: Interpret - Radiologist Xray Interpretation: IMPRESSION: 1. Deformity involving the distal 5th metacarpal is suggestive of an acute fracture. Please correlate clinically. 2. Osteopenia and advanced degenerative changes of the hand as described. Dictated by: Eddie Marquez M.D. on 02/25/2017 at 14:03 Approved by: Eddie Marquez M.D. on 02/25/2017 at 14:04 X-Ray Ordered: Hand right Interpretation / Wet Read by: Interpret - Radiologist Procedures Splint Application - Fx Mgt Splint Application- Fx Mgt: Ulnar gutter splint on right short arm, immobilizing the distal 5th metacrpal. Time: 16:41 Procedure Performed by: ED physician Precise Anatomic Location: Right hand Type of Immobilization: Ortho-glass Definitive Fracture Care: Pain control, Splint, Performed by ks Post-Procedure / Complications: Cap refill normal, Post splint vascular nl, Post splint neuro nl, Condition improved, Tolerated procedure well, Patient stable Re-Eval/Medical Decision Re-Evaluation/Progress #1: Time of Eval: 16:01 Re-Evaluation/Progress Note: Rechecked pt. Discussed imaging results and diagnosis. Informed the pt a splint will be palced. Re-Evaluation/Progress #2: Time of Eval: 16:45 Re-Evaluation/Progress Note: Rechecked pt. Applied the splint. Informed the pt of the plan to discharge. Pt understands and agrees with plan. F/U instructions and RTER warning given. All questions addressed. Counseled Regarding: Diagnosis, Lab results, Need for follow-up, When/why to return to ED Discharge & Departure Impression: Primary Impression: Fracture of fifth metacarpal bone of right hand Encounter type: initial encounter Fracture type: closed Metacarpal location : other portion of metacarpal Fracture alignment: nondisplaced Qualified Code: S62.396A - Other fracture of fifth metacarpal bone, right hand, initial encounter for closed fracture Disposition: Home Discharge Condition All VS Reviewed: Yes Condition: Stable Patient Instructions: Finger Fracture (ED), Splint Care (ED) Additional Instructions: Your imaging results show fracture of your 5th finger on the right hand. Use the splint provided. Take Ibuprofen or Tylenol as needed for pain. You could also use tramadol as needed for more severe pain. Follow up with your orthopedist (Dr. Trivedi) for further evaluation. Return to the emergency department in case of significant increase in swelling or in case of new or concerning symptoms. Referrals: Tova Lozada MD (PCP) Koko Trivedi MD Scribe Attestation Portions of this note were transcribed by Hermelindo Perez. I, , personally performed the history, physical exam and medical decision-making;I reviewed and confirmed the accuracy of the information in the transcribed note. Signed by Jabari Pollack. 02/25/17 [id number] copies to: Tova Lozada MD, Kirk H MD February 25, 2017 15:43 Hermelindo Perez February 25, 2017 15:51
--- NOTE | 2017-02-25 16:30 | DRSVH ---
PROCEDURE: X-RAY LEFT FOREARM, TWO VIEWS ([id number]) INDICATIONS: trauma, pain TECHNIQUE: 2 views of the forearm were acquired. COMPARISON: [facility], CR, XR WRIST 3VW RT, 02/25/2017, 14:44. FINDINGS: Bones: No fractures or dislocations. No suspicious bony lesions. Soft tissues: No suspicious soft tissue calcifications or masses. IMPRESSION: No fracture. No acute osseous lesion. If symptoms and/or clinical suspicion for patholog y persists, further assessment with repeat radiographs or advanced imaging (e.g. CT, MRI or bone scan ) may be helpful for further assessment. Dictated by: Flora Hicks MD, PhD on 02/25/2017 at 16:26 Approved by: Flora Hicks MD, PhD on 02/25/2017 at 16:28
[2017-02-25 16:33] VITALS: BP 153/65; PULSE 69; RESP 19; O2SAT 99
== END 2017-02-25 18:52 | disposition home or self-care (01) ==
LOC: SED 13:44
DX: S62.396A Other fracture of fifth metacarpal bone, right hand, initial encounter for closed fracture (principal); S01.81XA Laceration without foreign body of other part of head, initial encounter; S00.81XA Abrasion of other part of head, initial encounter; W01.0XXA Fall on same level from slipping, tripping and stumbling without subsequent striking against object, initial encounter; Y93.89 Activity, other specified; Y92.89 Other specified places as the place of occurrence of the external cause; Y99.8 Other external cause status; R04.0 Epistaxis; I10 Essential (primary) hypertension; K21.9 Gastro-esophageal reflux disease without esophagitis; F32.9 Major depressive disorder, single episode, unspecified; E03.9 Hypothyroidism, unspecified; E78.5 Hyperlipidemia, unspecified; Z95.0 Presence of cardiac pacemaker; Z88.1 Allergy status to other antibiotic agents; Z88.8 Allergy status to other drugs, medicaments and biological substances